=== PATIENT | male | born 1960 | race Caucasian/White ===

== ENCOUNTER 2019-10-02 07:12 | Emergency (ER) | payer MEDICARE, SELFPAY ==
[2019-10-02 07:20] VITALS: BP 162/113; PULSE 80; RESP 15; O2SAT 100; BMI 31.3
--- NOTE | 2019-10-02 07:38 | W.ED.BACK ---
HPI - Back Pain/Injury General: Chief Complaint: Back Pain/Injury Stated Complaint: BACK PAIN Time Seen by Provider: 10/02/19 07:18 History of Present Illness: HPI Narrative: Patient arrives ambulatory complaining about low back pain for the last 2 to 3days patient says dental what happened I confronted about his history of low back pain as a see through his record is had many visits for back pain and patient denied back pain history at first but after confrontation he said he has been seen couple times but not here but obviously in the [facility] [place] [place] system. Says he does want pain meds he used to be hooked on Vicodin. Says it hurts to get up out of a chair to roll over in bed to lift anything. MD elicited complaint: back pain Pertinent past history: prior back pain Onset (ago): year(s) Timing: constant and progressively worsening Severity: moderate Similar Symptoms Previously: Yes Quality: aching Location: lumbar spine Exacerbating factors: walking and lifting Relieving factors: immobilization Associated symptoms: Reports no associated symptoms; Deny abdominal pain, chills, fever(s), nausea or vomiting Review of Systems Const: Denies: fever(s), chills or body aches Eyes: Denies: change in vision or blurry vision ENMT: Denies: throat pain or nasal congestion Card: Denies: chest pain or dyspnea on exertion Resp: Denies: dyspnea, productive cough or non-productive cough GI: Denies: abdominal pain, nausea or vomiting : Denies: difficulty urinating Musc: Reports: back pain; Denies: extremity pain Skin/Breast: Denies: rash Neuro: Denies: headache(s) Psych: Denies: anxiety or depression Malcolm/Lymph: Denies: easy bruising PFSH ED PFSH: Social History Smoking and tobacco status: former smoker Physical Exam Const: COMMON NORMALS: no acute distress, average body habitus and patient oriented x3 HENMT: COMMON NORMALS: normocephalic HEAD & SCALP: normal to inspection and normocephalic FACE & SINUS: normal facial exam Eye: COMMON NORMALS: conjunctivae normal GENERAL EYE: appearance normal, both eyes and all related structures CONJUNCTIVA: Yes conjunctivae normal Neck/C-Spine: COMMON NORMALS: no JVD Chest: COMMONS NORMALS: normal inspection of the chest Resp: COMMON NORMALS: normal respiratory effort and clear to auscultation bilaterally AUSCULTATION: clear to auscultation bilaterally Cardio: COMMON NORMALS: no JVD, regular rate and regular rhythm RATE: regular rate RHYTHM: regular rhythm GI: COMMON NORMALS: Normal to inspection, nondistended, normoactive bowel sounds present Back/Pelvis: COMMON NORMALS: thoracic and lumbar spine normal to inspection; negative for straight leg raise negative bilaterally LUMBAR SPINE/LOWER BACK: Yes straight leg raise positive right (Bilateral straight leg lift test is positive I did watched patient ambulate into the clinic he ambulates slowly but did ambulate normally) and No straight leg raise positive left Extremity: COMMON NORMALS: normal to inspection and full ROM Neuro: COMMON NORMALS: patient oriented x3 Course Vital Signs: Vital signs: Vital Signs Pulse Rate 80 10/02/19 07:20 Respiratory Rate 15 10/02/19 07:20 Blood Pressure 162/113 10/02/19 07:20 Pulse Oximetry 100 10/02/19 07:20 Coding Level of Care Code ED Agricultural Specialist for Steve Cox
[2019-10-02] MEDS: methylPREDNISolone (DEPO) 80 MG/ML INJ 1 mL IM (07:50)
[2019-10-02] MEDS: ketorolac 60 mg/2 mL INJ IM (07:50)
[2019-10-02 07:56] VITALS: BP 124/100; PULSE 70; RESP 14; O2SAT 99
== END 2019-10-02 07:58 | disposition home or self-care (01) ==
PROVIDERS: Emergency Provider Nurse Practitioner Family; PCP Family Medicine
DX: M54.9 Dorsalgia, unspecified (principal); Z87.891 Personal history of nicotine dependence
CPT/HCPCS: 12345; 96372; 99281; 99283; J1040; J1885

== ENCOUNTER 2019-11-11 23:18 | Inpatient (IN) | payer MEDICARE, SELFPAY ==
[2019-11-11 23:27] VITALS: BP 138/82; PULSE 90; RESP 16; TEMP 36.7; O2SAT 96; BMI 31.3
[2019-11-12] VITALS (8 sets, daily range): BP systolic 115–175; BP diastolic 73–100; PULSE 64–80; RESP 16–18; TEMP 36.6–36.9; O2SAT 93–99
--- NOTE | 2019-11-12 00:05 | PC.NURSE ---
PATIENT STATES HE IS A CHRONIC ALCOHOLIC AND HAS RECENTLY BEEN DRINKING AGAIN BECAUSE OF FATHERS DAY. PATIENT STATES HE WANTS TO GO INTO THE STRESS UNIT FOR A FEW DAYS TO GET OFF THE ALCOHOL.
[2019-11-12 00:07] LABS: Basophils # 0.1 10^3/uL (0.0-0.1); Basophils % 1.1 %; Eosinophils # 0.1 10^3/uL (0.0-0.8); Eosinophils % 2.5 %; Hematocrit 42.5 % (42.0-52.0); Lymphocytes # 1.6 10^3/uL (0.8-4.8); Mean Corpuscular HGB Conc 32.9 g/dL (30.0-36.0); Mean Corpuscular Hemoglobin 34.5 pg (28.0-34.0); Mean Corpuscular Volume 104.7 fL (80-94); Mean Platelet Volume 12.6 fL (7.4-10.4); Monocytes # 0.5 10^3/uL (0.2-0.9); Monocytes % 8.2 %; Neutrophils # 3.3 10^3/uL (1.8-7.7); Neutrophils % 58.8 %; Nucleated Red Blood Cells % 0 %; Platelet Count 125 10^3/cmm (130-400); Red Blood Count 4.06 10^6/uL (4.1-5.3); Red Cell Distribution Width 13.2 % (12.1-15.1); White Blood Count 5.6 10^3/uL (4.0-10.0)
[2019-11-12 00:33] LABS: Alanine Aminotransferase 19 U/L (0-41); Albumin Level 3.9 g/dL (3.5-5.2); Alcohol Level 113 mg/dL (0-10); Alkaline Phosphatase 65 IU/L (40-130); Anion Gap 13.6 (5-19); Aspartate Amino Transferase 19 U/L (0-40); Blood Urea Nitrogen 15 mg/dL (6-20); Calcium 8.9 mg/dL (8.5-10.5); Carbon Dioxide 26 mmol/L (22-29); Chloride 107 mmol/L (98-107); Creatinine Clr Calc Pharmacy 71.2005; Globulin 1.7 g/dL (1.3-4.6); Glucose 98 mg/dL (65-115); Osmolality Calculated 292 mOsm/kg (285-295); Potassium 3.6 mmol/L (3.5-5.1); Sodium 143 mmol/L (136-145); Total Bilirubin 0.2 mg/dL (0.15-1.2); Total Protein 5.6 g/dL (6.6-8.7)
[2019-11-12 00:34] LABS: Acetaminophen < 5.0 ug/mL (10-30); Salicylate < 0.3 mg/dL (3-10)
--- NOTE | 2019-11-12 03:59 | W.ED.ALCOHOL ---
HPI - Alcohol General: Chief Complaint: Alcohol Stated Complaint: mhe Time Seen by Provider: 11/11/19 23:46 History of Present Illness: HPI narrative: 59-year-old presents with feelings of depression. He states that he has been sober for 2 years, and started drinking after Father's Day. He has been progressively depressed since that day a week ago. He says before he grabbed another bottle and drink himself to this morning, he called to come here. He wishes to come into the stress unit for treatment. Last drink: Days (ago) Chronic alcohol use: No Previous visits for alcohol intoxication: No Recent trauma: No Associated symptoms: Reports depression and suicidal ideation; Deny nausea, seizure-like activity, syncope or vomiting Review of Systems Const: Denies: fever(s) or chills Eyes: Denies: change in vision or blurry vision ENMT: Denies: change in hearing, epistaxis, post nasal drip or sinus pain Card: Denies: syncope Resp: Denies: dyspnea, non-productive cough or wheezing GI: Denies: nausea or vomiting : Denies: difficulty urinating or hematuria Musc: Reports: back pain; Denies: neck pain, joint redness or joint warmth Skin/Breast: Denies: rash, pruritus or erythema Neuro: Denies: seizure-like activity Psych: Reports: depression and suicidal ideation; Denies: visual hallucinations, auditory hallucinations or homicidal ideation [facility] ED PFSH: Social History Smoking and tobacco status: current every day smoker Physical Exam Const: GENERAL APPEARANCE: well developed ORIENTATION/CONSCIOUSNESS: Yes oriented to person, Yes oriented to place and Yes oriented to time HENMT: COMMON NORMALS: normocephalic, external ears normal and Normal external nose present HEAD & SCALP: normocephalic; no scalp tenderness FACE & SINUS: normal facial exam NOSE: Normal external nose present and No nasal discharge present EXTERNAL EAR: Yes external ears normal MOUTH: tongue normal Eye: COMMON NORMALS: Equal, round and reactive pupils present, EOMs intact bilaterally and conjunctivae normal EYELID: eyelids normal CONJUNCTIVA: Yes conjunctivae normal PUPIL: Yes Equal, round and reactive pupils present Neck/C-Spine: GENERAL: No tracheal deviation Chest: COMMONS NORMALS: normal inspection of the chest CHEST: No tenderness Resp: COMMON NORMALS: clear to auscultation bilaterally EFFORT & INSPECTION: No tachypneic, No respiratory distress, No retractions, No uses accessory muscles and No tracheal deviation AUSCULTATION: clear to auscultation bilaterally, no rhonchi, no wheezes and lung sounds not diminished Cardio: COMMON NORMALS: regular rate and regular rhythm RATE: regular rate RHYTHM: regular rhythm HEART SOUNDS: no murmurs PERIPHERAL PULSES: radial pulses present GI: INSPECTION: No abdominal distension AUSCULTATION: No Hyperactive bowel sounds present and No Hypoactive bowel sounds present PALPATION: No Guarding due to palpation present (GI) and No Rigid due to palpation PERCUSSION: no dullness to percussion and no tympanic to percussion Neuro: SENSORIUM/ORIENTATION: Yes oriented to person, Yes oriented to place and Yes oriented to time Psych: COMMON NORMALS: Normal thought process present and speech normal APPEARANCE: Yes grossly normal ATTITUDE: Yes calm and Yes engaged ACTIVITY/MOTOR BEHAVIOR: Yes appropriate eye contact SPEECH: Yes normal speech MOOD & AFFECT: Yes depressed mood THOUGHT PROCESS: Normal thought process present THOUGHT CONTENT: Yes Suicidality present ATTENTION/CONCENTRATION: Yes attention grossly intact MEMORY/COGNITION: Yes memory grossly intact INSIGHT: Fair insight present (Psych) JUDGEMENT: Fair judgement present (Psych) Skin: COMMON NORMALS: no rashes or lesions noted GENERAL SKIN EXAM: no rashes or lesions noted Course Consultations: Consultation #1: [facility] Vital Signs: Vital signs: Vital Signs Temperature 98 F 11/12/19 03:37 Pulse Rate 73 11/12/19 03:37 Respiratory Rate 17 11/12/19 03:37 Blood Pressure 136/96 11/12/19 03:37 Pulse Oximetry 95 11/12/19 03:37 MDM - Alcohol MDM Narrative: Medical decision making narrative: He appears medically stable. He desires to come in to the [facility] for psychiatric evaluation. I think this is appropriate. Spoke with psychiatry they agreed to admit Lab Data: Labs: Lab Results 11/11/19 11/11/19 Range/Units 23:58 23:58 WBC 5.6 (4.0-10.0) 10^3/ uL RBC 4.06 L (4.1-5.3) 10^6/u L Hgb 14.0 (11.7-16.6) g/dL Hct 42.5 (42.0-52.0) % MCV 104.7 H (80-94) fL MCH 34.5 H (28.0-34.0) pg MCHC 32.9 (30.0-36.0) g/dL RDW 13.2 (12.1-15.1) % Plt Count 125 L (130-400) 10^3/c mm MPV 12.6 H (7.4-10.4) fL Neut % (Auto) 58.8 % Lymph % (Auto) 29.0 % Lea % (Auto) 8.2 % Eos % (Auto) 2.5 % Baso % (Auto) 1.1 % Neut # (Auto) 3.3 (1.8-7.7) 10^3/u L Lymph # (Auto) 1.6 (0.8-4.8) 10^3/u L Lea # (Auto) 0.5 (0.2-0.9) 10^3/u L Eos # (Auto) 0.1 (0.0-0.8) 10^3/u L Baso # (Auto) 0.1 (0.0-0.1) 10^3/u L Nucleated RBC % (a uto) 0 % Nucleated RBCs # 0.0 /100WBC Sodium 143 (136-145) mmol/L Potassium 3.6 (3.5-5.1) mmol/L Chloride 107 (98-107) mmol/L Carbon Dioxide 26 (22-29) mmol/L Anion Gap 13.6 (5-19) BUN 15 (6-20) mg/dL Creatinine 1.2 (0.7-1.2) mg/dL GFR Calculation 62.0 L (90-130) mL/min Glucose 98 (65-115) mg/dL Calculated Osmolal ity 292 (285-295) mOsm/k g Calcium 8.9 (8.5-10.5) mg/dL Total Bilirubin 0.2 (0.15-1.2) mg/dL AST 19 (0-40) U/L ALT 19 (0-41) U/L Alkaline Phosphata se 65 (40-130) IU/L Total Protein 5.6 L (6.6-8.7) g/dL Albumin 3.9 (3.5-5.2) g/dL Globulin 1.7 (1.3-4.6) g/dL Salicylates < 0.3 L (3-10) mg/dL Acetaminophen < 5.0 L (10-30) ug/mL Ethyl Alcohol 113 H (0-10) mg/dL Discharge Plan Discharge Patient Disposition: Admitted As Inpatient Admit Provider: Jerel Ferrari Clinical Impression: Suicidal ideation Depression Qualifiers: Depression Type: major depressive disorder Major depression recurrence: single episode Active/Remission status: currently active Major depression episode severity: severe Psychotic features: without psychotic features Qualified Code(s): F32.2 - Major depressive disorder, single episode, severe without psychotic features Condition: Stable Discharge Date/Time: 11/12/19 03:17 Coding Level of Care Code ED Plant Health Care Technician for Steve Fwd Exam Comprehensive
--- NOTE | 2019-11-12 13:49 | P.HP_ITS ---
Providers/Chief Complaint Admitting Physician: Jerel Ferrari MD Primary Care Provider: Simin Johnson MD Chief Complaint: mhe HPI NPU History of Present Illness Rolando Campbell is a 59 year old male who presented to the emergency room reporting that he had relapsed on alcohol and was afraid that this will be the beginning of a very bad run. He endorsed depression and reporting he had been off of his medication for months at least maybe a year. He had been sober for about a year prior to this episode. He reports that there have been some stressful situations, he had been taken advantage of and that led to the relapse. He started having thoughts to harm himself and came to the emergency room and was admitted to the neuropsychiatric unit for definitive treatment of those issues. He reports that he has a long history of psychiatric treatment endorsing multiple inpatient stays at [facility]. He reports that he started smoking cigarettes drinking alcohol and smoking weed in his teens and reports that he has had a long run of addiction and other chemicals as well including opiates and methamphetamines but reports is been a long time since those things had occurred. He had even been up and down throughout his life and is drinking from the standpoint of sobriety. He reports that most recently in the past years he has had more binge drinking behavior then reverting to daily drinking. He reports that in February he started having housing issues and now finds himself completely homeless he reports the COVID-19 has made it harder for him to get on his feet and frustration he ended up drinking but also having depression. He denies having any actual suicide attempts and reports his goal for the hospitalization will be to get back on medication that helped him in the past though he does not remember names. An excerpt from his last [facility] inpatient eval is included below. Psychiatric history: As above. He has had at least 8 inpatient hospitalizations here at [facility]. He denies having a long history of medication trials. Substance abuse history: Endorses smoking about half to 3/4 pack of cigarettes a day that he has not been drinking and really does not smoke marijuana. He denies any illicit drug use for some time. Reports that he has been to rehab 1 time and has had DUIs with the last one was about a decade ago. Family history: He denies any mental health or addiction issues in his family and denies any s uicide attempts or completions that he is aware of. Developmental history: He is unaware of any issues with his mom's or delivery of him. He learned to walk and talk and met his developmental milestones on time. He denies having speech therapy, learning support, emotional support or special education classes. Psychosocial history: He reports his mother and father were together when he was born and that he has a younger brother. He denies any half siblings through either parent. He reports that his childhood and the school and there was no emotional physical or sexual abuse. He reports he graduated from high school and has a bachelor's of arts and theater with minor history. He is a heterosexual and his longest relationship was almost 25 years. He has been once and once he has a 32-year-old daughter and a 28-year-old son. He was in the [employer] from - . He endorses being [place] S[place]. He reports that his longest job he ever worked was 20 years with [employer]. He endorses being homeless. Legal history: Endorses being in care home maybe home many times with the longest time served being 3 months. Medical history: He denies any significant medical issues. Per [facility] OP eval: DATE OF VISIT: 02/04/2014 DATE OF DICTATION: 02/05/2014 START TIME: 10:25 END TIME: 11:05 CHIEF COMPLAINT: Resuming care. HISTORY OF PRESENT ILLNESS: The patient has been receiving psychiatric care at [facility]. He has been placed on both Prozac and trazodone, which he found helpful. He described himself as an addict . He has had a significant history of alcohol abuse. He described his alcohol use with sobriety for 136 days. He has used also methamphetamine in the past. The patient reported feeling sad and depressed and he was placed on the antidepressants, which he found them helpful. He would like to resume care. He is currently staying at the [facility]. CURRENT MEDICATIONS: Prozac 20 milligrams daily Trazodone 50 milligrams at bedtime FAMILY PSYCHIATRIC HISTORY: He denied a family history of psychiatric illness. SOCIAL HISTORY: He lives at the [facility]. He is . He has been in [place]. He is a . He graduated college. He has two children. He was living with his mother, before he became homeless. His major in school was theater. PAST MEDICAL/SURGICAL HISTORY: Cholecystectomy. He has also mentioned a previous diagnosis of some sort of a kidney cancer. A gastric ulcer was also reported. PAST PSYCHIATRIC HISTORY: Previously diagnosed with depression and posttraumatic stress disorder. SUBSTANCE ABUSE HISTORY: Methamphetamine and alcohol as described above. PHYSICAL EXAMINATION: VITAL SIGNS: BP: 113/59. PULSE: 98. WT: 172 pounds. GENERAL: He is not in any acute distress. He has a long mustache. He is alert and oriented to time, place, and person. EXTREMITIES: There was no extremity edema or deformity. MENTAL STATUS EXAM: The patient is fairly well-groomed, cooperative, good eye co ntact and spontaneous speech. He has denied any thoughts of suicide or homicide. He has denied any auditory or visual hallucinations. Affect is full. Mood is described as better with my medication. Fair attention and concentration. ASSESSMENT: AXIS I: Posttraumatic stress disorder. Major depressive disorder. Polysubstance dependence, in partial remission. Meds NPU Home Medications Medication Instructions Recorded Confirmed Last Taken Type No Known Home Medications 11/12/19 11/12/19 Unknown History Allergies Allergy/AdvReac Type Severity Reaction Status Date / Time No Known Allergies Allergy Verified 10/02/19 07:25 PFSH NPU PFSH: Social History Smoking and tobacco status: current every day smoker Mental Status Exam MSE Comments: This is a overweight versus obese white male with adequate dress grooming and eye contact. No abnormal movements except for psychomotor retardation he looks fairly rugged as if he has been living outside with his skin dark from the elements and his hands and feet rug and from the wear cooperative with exam in no acute distress speech was decreased rate and volume mood described as depressed affect congruent. Thought process organized. Thought content: Patient denied any suicidal or homicidal ideation, there were no delusions reported or noted, he denied any auditory or visual hallucinations. Attention and concentration were intact and memory appeared reliable but none were formally tested. He is alert and oriented x3. Insight and judgment are limited. Vitals/I&O/Wt Last Vital Signs Temp 98.0 F 11/12/19 06:00 Pulse 73 11/12/19 06:00 Resp 17 11/12/19 06:00 BP 136/96 11/12/19 06:00 Pulse Ox 95 11/12/19 06:00 Weight last 48 hrs Weight 90.718 kg Data NPU : 11/11/19 23:58 11/11/19 23:58 A&P Assessment and plan (1) Alcohol use disorder: Status: Acute (2) Suicidal ideation: Status: Acute (3) Depression: Status: Acute Qualifiers: Active/Remission status: currently active Depression Type: major depressive disorder Major depression episode severity: severe Major depression recurrence: single episode Psychotic features: without psychotic features Qualified Code(s): F32.2 - Major depressive disorder, single episode, severe without psychotic features Additional A&P Information This is a 59-year-old white male with a long history of Depression, alcohol use disorder and recently significant psychosocial stressors who presented to the neuropsychiatric unit for treatment of his depression and addiction and hopefully getting started back on some appropriate medications. 1. Continue current medication. Except: 2. Start Prozac 20 mg p.o. every morning 3. Continue to 15-minute checks for safety. 4. Encourage individual, group and milieu therapy. 5. Encourage discharge to sober living treatment at the highest level of care to which she is willing to commit. Involuntary Hold Information 96 Hour Hold: 96 Hour Involuntary Admission: No Attestations NPU Medical Necessity Statement*: Inpatient hospitalization is medically necessary and the clinically appropriate intervention at this time. We will initiate medication and monitor and make adjustments as indicated. He will be in the hospital for over 2 midnights. Likely length of stay 2-4 days. Coding Level of Care Code Acute Cafeteria Attendant for Steve Cox Diagnoses Alcohol use disorder Suicidal ideation R45.851 Depression F32.2 Active/Remission status: currently active Depression Type: major depressive disorder Major depression episode severity: severe Major depression recurrence: single episode Psychotic features: without psychotic features
[2019-11-13 06:00] VITALS: BP 178/102; PULSE 65; RESP 17; TEMP 36.9; O2SAT 97
[2019-11-13] MEDS: fluoxetine 20 mg Capsule PO (08:20)
--- NOTE | 2019-11-13 14:44 | P.DS_ITS ---
Diagnoses at Discharge Discharge Diagnosis (1) Alcohol use disorder: Status: Acute (2) Suicidal ideation: Status: Acute (3) Depression: Status: Acute Qualifiers: Active/Remission status: currently active Depression Type: major depressive disorder Major depression episode severity: severe Major depression recurrence: single episode Psychotic features: without psychotic features Qualified Code(s): F32.2 - Major depressive disorder, single episode, severe without psychotic features Reason for Visit Reason for Visit: mhe Brief History: Rolando Campbell is a 59 year old male who presented to the emergency room reporting that he had relapsed on alcohol and was afraid that this will be the beginning of a very bad run. He endorsed depression and reporting he had been off of his medication for months at least maybe a year. He had been sober for about a year prior to this episode. He reports that there have been some stressful situations, he had been taken advantage of and that led to the relapse. He started having thoughts to harm himself and came to the emergency room and was admitted to the neuropsychiatric unit for definitive treatment of those issues. He reports that he has a long history of psychiatric treatment endorsing multiple inpatient stays at [facility]. He reports that he started smoking cigarettes drinking alcohol and smoking weed in his teens and reports that he has had a long run of addiction and other chemicals as well including opiates and methamphetamines but reports is been a long time since those things had occurred. He had even been up and down throughout his life and is drinking from the standpoint of sobriety. He reports that most recently in the past years he has had more binge drinking behavior then reverting to daily drinking. He reports that in February he started having housing issues and now finds himself completely homeless he reports the COVID-19 has made it harder for him to get on his feet and frustration he ended up drinking but also having depression. He denies having any actual suicide attempts and reports his goal for the hospitalization will be to get back on medication that helped him in the past though he does not remember names. An excerpt from his last [facility] inpatient eval is included below. Psychiatric history: As above. He has had at least 8 inpatient [address] here at [facility]. He denies having a long history of medication trials. Substance abuse history: Endorses smoking about half to 3/4 pack of cigarettes a day that he has not been drinking and really does not smoke marijuana. He denies any illicit drug use for some time. Reports that he has been to rehab 1 time and has had DUIs with the last one was about a decade ago. Family history: He denies any mental health or addiction issues in his family and denies any suicide attempts or completions that he is aware of. Developmental history: He is unaware of any issues with his mom's or delivery of him. He learned to walk and talk and met his developmental milestones on time. He denies having speech therapy, learning support, emotional support or special education classes. Psychosocial history: He reports his mother and father were together when he was born and that he has a younger brother. He denies any half siblings through either parent. He reports that his childhood and the school and there was no emotional physical or sexual abuse. He reports he graduated from high school and has a bachelor's of arts and theater with minor history. He is a heterosexual and his longest relationship was almost 25 years. He has been once and once he has a 32-year-old daughter and a 28-year-old son. He was in the [employer] from - [employer]. He endorses being [place] Yaz[employer]ism. He reports that his longest job he ever worked was 20 years with [employer]. He endorses being homeless. Legal history: Endorses being in fdc maybe home many times with the longest time served being 3 months. Medical history: He denies any significant medical issues. Per [facility] OP eval: DATE OF VISIT: 02/04/2014 DATE OF DICTATION: 02/05/2014 START TIME: 10:25 END TIME: 11:05 CHIEF COMPLAINT: Resuming care. HISTORY OF PRESENT ILLNESS: The patient has been receiving psychiatric care at [facility]. He has been placed on both Prozac and trazodone, which he found helpful. He described himself as an addict . He has had a significant history of alcohol abuse. He described his alcohol use with sobriety for 136 days. He has used also methamphetamine in the past. The patient reported feeling sad and depressed and he was placed on the antidepressants, which he found them helpful. He would like to resume care. He is currently staying at the [facility]. CURRENT MEDICATIONS: Prozac 20 milligrams daily Trazodone 50 milligrams at bedtime FAMILY PSYCHIATRIC HISTORY: He denied a family history of psychiatric illness. SOCIAL HISTORY: He lives at the [facility]. He is . He has been in [place]. He is a . He graduated college. He has two children. He was living with his mother, before he became homeless. His major in school was theater. PAST MEDICAL/SURGICAL HISTORY: Cholecystectomy. He has also mentioned a previous diagnosis of some sort of a kidney cancer. A gastric ulcer was also reported. PAST PSYCHIATRIC HISTORY: Previously diagnosed with depression and posttraumatic stress disorder. SUBSTANCE ABUSE HISTORY: Methamphetamine and alcohol as described above. PHYSICAL EXAMINATION: VITAL SIGNS: BP: 113/59. PULSE: 98. WT: 172 pounds. GENERAL: He is not in any acute distress. He has a long mustache. He is alert and oriented to time, place, and person. EXTREMITIES: There was no extremity edema or deformity. MENTAL STATUS EXAM: The patient is fairly well-groomed, cooperative, good eye contact and spontaneous speech. He has denied any thoughts of suicide or homicide. He has denied any auditory or visual hallucinations. Affect is full. Mood is described as better with my medication. Fair attention and concentration. ASSESSMENT: AXIS I: Posttraumatic stress disorder. Major depressive disorder. Polysubstance dependence, in partial remission. Hospital Course Hospital Course Now presented to the emergency room having recently relapsed on alcohol and having suicidal thoughts with depression. He was admitted to the neuropsychiatric unit for definitive treatment of those issues. While on the unit he slowly acclimated to the individual, group and milieu therapies provided. He was started on Prozac and propranolol and had a positive response. During hospitalization, and routine laboratory studies were within normal limits except for a few outliers. Additionally had a general medical evaluation which is also within normal limits and revealed no new processes. Discharge Summary At the time of discharge, patient was absent lethality and denied any psychosis. Endorse a plan to avoid all drugs of abuse and follow with outpatient recommendations. He was evaluated and deemed to be absent credible lethality achieved the maximum benefit from inpatient hospitalization so he was discharged. Involuntary Hold Information 96 Hour Hold: 96 Hour Involuntary Admission: No Mental Status Exam MSE Comments: This is a overweight versus obese white male with adequate dress grooming and eye contact. No abnormal movements except for resolving psychomotor retardation he looks fairly rugged as if he has been living outside with his skin dark from the elements and his hands and feet rug and from the wear cooperative with exam in no acute distress. speech was more normal rate and volume. mood described as better, affect congruent. Thought process organized. Thought content: Patient denied any suicidal or homicidal ideation, there were no delusions reported or noted, he denied any auditory or visual hallucinations. Attention and concentration were intact and memory appeared reliable but none were formally tested. He is alert and oriented x3. Insight and judgment are improving Discharge Data Vitals: Last Vital Signs Temp 98.4 F 11/13/19 06:00 Pulse 65 11/13/19 06:00 Resp 17 11/13/19 06:00 BP 178/102 11/13/19 06:00 Pulse Ox 97 11/13/19 06:00 Discharge Plan Discharge Patient Disposition: Home, Self-Care Condition: Stable Prescriptions: New propranolol 20 mg Tablet 20 mg PO TID 30 Days Qty: 90 RF: 1 fluoxetine 20 mg Capsule 20 mg PO DAILY 30 Days Qty: 30 RF: 1 Discharge Orders: Discharge Order (Routine); Ordered 11/13/19 Ordered By: Jerel Ferrari Referrals: [facility] [Outside] - 1-3 days (you will need to go during the walk-in hours and request services Tuesday through Tuesday 7:30 a.m.-2:30 pm. 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
[2019-11-13 15:14] VITALS: BP 178/102; PULSE 65; RESP 17; TEMP 36.9; O2SAT 97
[2019-11-13 15:19] VITALS: BP 178/102; PULSE 65; RESP 17; TEMP 36.9; O2SAT 97
== END 2019-11-13 17:00 | disposition home or self-care (01) | DRG 897 ==
LOC: ER 23:53 → NP 11-12 02:25
PROVIDERS: Physician Assistant; Admitting Provider Psychiatry & Neurology Psychiatry; Emergency Provider Emergency Medicine; PCP Family Medicine; Visit Provider Psychiatry & Neurology Psychiatry
DX: F10.129 Alcohol abuse with intoxication, unspecified (principal); R45.851 Suicidal ideations; F32.2 Major depressive disorder, single episode, severe without psychotic features; F17.210 Nicotine dependence, cigarettes, uncomplicated; Z59.0 Homelessness; F43.10 Post-traumatic stress disorder, unspecified; Y90.5 Blood alcohol level of 100-119 mg/100 ml
CPT/HCPCS: 12345; 80053; 80307; 85025; 99281

== ENCOUNTER 2019-12-01 14:33 | Emergency (ER) | payer MEDICARE, SELFPAY ==
[2019-12-01] VITALS (8 sets, daily range): BP systolic 96–236; BP diastolic 63–112; PULSE 84–98; RESP 16–22; TEMP 36.9; O2SAT 96–99; BMI 31.3
--- NOTE | 2019-12-01 14:57 | W.ED.ABDPA2 ---
Documented by User: CHIKIS Lei 12/01/19 16:38 HPI - Abdominal Pain General: Chief Complaint: Abdominal Pain Stated Complaint: ABD PAIN Time Seen by Provider: 12/01/19 14:56 History of Present Illness: HPI narrative: Patient is a 59-year-old male who comes to the ED with epigastric pain, nausea and vomiting. Patient says symptoms started this morning when he woke up. The pain is continued to progress and become more severe throughout the day. Pain is located in the epigastric region and he rates it currently an 8 out of 10. He describes the pain as constant and sharp. He says he has been dry heaving all throughout the day today. He was able to eat a bologna sandwich today and he kept it down. Denies any dysuria, hematuria, diarrhea, constipation or blood in the stool. Patient states that he does drink alcohol daily but denies any recent cessation or decrease in alcohol intake. Associated Symptoms: Reports nausea and vomiting; Denies chills, constipation, diarrhea, dysuria, fever(s), hematochezia and hematuria Review of Systems Const: Reports: diaphoresis; Denies: fever(s), chills or fatigue Eyes: Denies: change in vision or eye discomfort ENMT: Denies: throat pain, odynophagia, nasal discharge or nasal congestion Card: Denies: chest pain, palpitations, edema, swelling of feet/ankles, dyspnea on exertion or orthopnea Resp: Denies: dyspnea, productive cough or non-productive cough GI: Reports: abdominal pain (epigastric pain), nausea and vomiting; Denies: diarrhea, constipation or hematochezia : Denies: flank pain, difficulty urinating, dysuria or hematuria Musc: Denies: neck pain, back pain or extremity swelling Skin/Breast: Denies: rash or new lesions Neuro: Denies: headache(s), numbness in extremities or weakness in extremities PFSH ED PFSH: Social History Smoking and tobacco status: current every day smoker Physical Exam Const: COMMON NORMALS: patient oriented x3 and alert GENERAL APPEARANCE: cooperative, in distress (pt is moaning in pain.) and diaphoretic HENMT: COMMON NORMALS: normocephalic HEAD & SCALP: normocephalic MOUTH: Normal oral and palatal mucosa present THROAT: posterior oropharynx normal and uvula midline Neck/C-Spine: COMMON NORMALS: supple GENERAL: Yes normal visual inspection Resp: COMMON NORMALS: normal respiratory effort, No retractions, No use of accessory muscles and clear to auscultation bilaterally EFFORT & INSPECTION: Yes able to speak in complete sentences AUSCULTATION: clear to auscultation bilaterally Cardio: COMMON NORMALS: regular rate, regular rhythm, S1 normal heart sound present, S2 normal heart sound present, No gallops present (Cardio), No clicks present (Cardio), No murmurs present (Cardio) and Peripheral pulses 2+ throughout RATE: regular rate RHYTHM: regular rhythm HEART SOUNDS: S1 normal heart sound present and S2 normal heart sound present PERIPHERAL PULSES: Peripheral pulses 2+ throughout GI: COMMON NORMALS: Normal to inspection, nondistended, normoactive bowel sounds present, Soft to palpation and no masses PALPATION: Yes Soft to palpation and Yes Tenderness to palpation present (GI) Details: other (epigastric tenderness) : COMMON NORMALS: Yes no CVA tenderness BLADDER/KIDNEY EXAM: Yes no CVA tenderness Back/Pelvis: COMMON NORMALS: no CVA tenderness Extremity: COMMON NORMALS: normal to inspection and no pedal edema Neuro: COMMON NORMALS: patient oriented x3 and moves all extremities SENSORIUM/ORIENTATION: Yes alert Skin: COMMON NORMALS: no rashes or lesions noted NARRATIVE SKIN EXAM: Patient's skin is clammy to the touch and he is diaphoretic. GENERAL SKIN EXAM: no rashes or lesions noted Course Vital Signs: Vital signs: Vital Signs Temperature 98.4 F 12/01/19 14:39 Pulse Rate 84 12/01/19 20:24 Respiratory Rate 16 12/01/19 20:24 Blood Pressure 96/63 12/01/19 20:24 Pulse Oximetry 97 12/01/19 20:24 MDM - Abdominal Pain MDM Narrative: Medical decision making narrative: Patient care signed out to Dr. Judge. Patient's history, exam findings and labs were discussed. Waiting on baseline troponin value. Lab Data: Attestation: I reviewed the patient's lab results. Labs: Lab Results 12/01/19 12/01/19 12/01/19 Range/Units 14:53 14:53 14:53 WBC 7.4 (4.0-10.0) 10^3/ uL RBC 5.13 (4.1-5.3) 10^6/u L Hgb 17.4 H (11.7-16.6) g/dL Hct 50.5 (42.0-52.0) % MCV 98.4 H (80-94) fL MCH 33.9 (28.0-34.0) pg MCHC 34.5 (30.0-36.0) g/dL RDW 12.8 (12.1-15.1) % Plt Count 146 (130-400) 10^3/c mm MPV 12.7 H (7.4-10.4) fL Neut % (Auto) 65.4 % Lymph % (Auto) 24.1 % [place] % (Auto) 8.7 % Eos % (Auto) 0.5 % Baso % (Auto) 0.8 % Neut # (Auto) 4.86 (1.8-7.7) 10^3/u L Lymph # (Auto) 1.8 (0.8-4.8) 10^3/u L [place] # (Auto) 0.7 (0.2-0.9) 10^3/u L Eos # (Auto) 0.0 (0.0-0.8) 10^3/u L Baso # (Auto) 0.1 (0.0-0.1) 10^3/u L Nucleated RBC % (a uto) 0 % Nucleated RBCs # 0.0 /100WBC Sodium 135 L (136-145) mmol/L Potassium 3.4 L (3.5-5.1) mmol/L Chloride 98 (98-107) mmol/L Carbon Dioxide 20 L (22-29) mmol/L Anion Gap 20.4 H (5-19) BUN 26 H (6-20) mg/dL Creatinine 1.4 H (0.7-1.2) mg/dL GFR Calculation 51.9 L (90-130) mL/min Glucose 98 (65-115) mg/dL Calculated Osmolal ity 277 L (285-295) mOsm/k g Calcium 9.8 (8.5-10.5) mg/dL Total Bilirubin 0.8 (0.15-1.2) mg/dL AST 21 (0-40) U/L ALT 19 (0-41) U/L Alkaline Phosphata se 65 (40-130) IU/L Troponin T Baselin e (0-15) ng/L Troponin T 120 Min [place] (0-15) ng/L Delta Troponin T (0-10) ABS# Total Protein 6.8 (6.6-8.7) g/dL Albumin 4.6 (3.5-5.2) g/dL Globulin 2.2 (1.3-4.6) g/dL Lipase 22 (13-60) U/L Urine Color (Yellow) Urine Appearance (CLEAR) Urine pH (5-7) Ur Specific Gravit y (1.005-1.030) Urine Protein (Negative) Urine Glucose (UA) (Normal) Urine Ketones (Negative) Urine Blood (Negative) Urine Nitrate (Negative) Urine Bilirubin (NEGATIVE) Urine Urobilinogen (Negative) mg/dL Ur Leukocyte Cecy ase (Negative) Urine RBC (0-2) /hpf Urine WBC (0-5) /hpf Ur Squamous Epith Cells (0-5) Amorphous Sediment Urine Bacteria (NONE) Hyaline Casts Urine Mucus H. pylori IgG Anti body Negative (Negative) 12/01/19 12/01/19 12/01/19 Range/Units 14:53 17:30 18:45 WBC (4.0-10.0) 10^3/ uL RBC (4.1-5.3) 10^6/u L Hgb (11.7-16.6) g/dL Hct (42.0-52.0) % MCV (80-94) fL MCH (28.0-34.0) pg MCHC (30.0-36.0) g/dL RDW (12.1-15.1) % Plt Count (130-400) 10^3/c mm MPV (7.4-10.4) fL Neut % (Auto) % Lymph % (Auto) % [place] % (Auto) % Eos % (Auto) % Baso % (Auto) % Neut # (Auto) (1.8-7.7) 10^3/u L Lymph # (Auto) (0.8-4.8) 10^3/u L [place] # (Auto) (0.2-0.9) 10^3/u L Eos # (Auto) (0.0-0.8) 10^3/u L Baso # (Auto) (0.0-0.1) 10^3/u L Nucleated RBC % (a uto) % Nucleated RBCs # /100WBC Sodium (136-145) mmol/L Potassium (3.5-5.1) mmol/L Chloride (98-107) mmol/L Carbon Dioxide (22-29) mmol/L Anion Gap (5-19) BUN (6-20) mg/dL Creatinine (0.7-1.2) mg/dL GFR Calculation (90-130) mL/min Glucose (65-115) mg/dL Calculated Osmolal ity (285-295) mOsm/k g Calcium (8.5-10.5) mg/dL Total Bilirubin (0.15-1.2) mg/dL AST (0-40) U/L ALT (0-41) U/L Alkaline Phosphata se (40-130) IU/L Troponin T Baselin e 24 H (0-15) ng/L Troponin T 120 Min [place] 19.13 H (0-15) ng/L Delta Troponin T -4.87 L (0-10) ABS# Total Protein (6.6-8.7) g/dL Albumin (3.5-5.2) g/dL Globulin (1.3-4.6) g/dL Lipase (13-60) U/L Urine Color Yellow (Yellow) Urine Appearance Clear (CLEAR) Urine pH 5 (5-7) Ur Specific Gravit y 1.020 (1.005-1.030) Urine Protein Trace (Negative) Urine Glucose (UA) Norm (Normal) Urine Ketones 1+ H (Negative) Urine Blood Neg (Negative) Urine Nitrate Negative (Negative) Urine Bilirubin Neg (NEGATIVE) Urine Urobilinogen Norm (Negative) mg/dL Ur Leukocyte Cecy ase Negative (Negative) Urine RBC None (0-2) /hpf Urine WBC 0-4 H (0-5) /hpf Ur Squamous Epith Cells Rare (0-5) Amorphous Sediment Not Reportable Urine Bacteria Trace (NONE) Hyaline Casts 10-15 H Urine Mucus 1+ H. pylori IgG Anti body (Negative) EKG Data ^: EKG 1: Attestation: I personally reviewed and interpreted this EKG as follows: EKG interpretation date: 12/01/19 Interpretation: sinus rhythm, 89bpm, Occasional SVC. no st segment elevation or depression seen. Discharge Plan Discharge Patient Disposition: Home, Self-Care Clinical Impression: Abdominal pain Qualifiers: Abdominal location: generalized Qualified Code(s): R10.84 - Generalized abdominal pain Pneumonia Qualifiers: Pneumonia type: due to unspecified organism Laterality: left Lung location: lower lobe of lung Qualified Code(s): J18.9 - Pneumonia, unspecified organism Condition: Stable Prescriptions: [place] 5-325 mg tablet 1 tab PO Q6H PRN (Reason: pain) Qty: 14 RF: 0 ondansetron 4 mg tablet,disintegrating 4 mg PO Q6H PRN (Reason: nausea and vomiting) Qty: 14 RF: 0 doxycycline hyclate 100 mg capsule 100 mg PO BID 7 Days Qty: 14 RF: 0 No Action propranolol 20 mg Tablet 20 mg PO TID 30 Days Qty: 90 RF: 1 fluoxetine 20 mg Capsule 20 mg PO DAILY 30 Days Qty: 30 RF: 1 Discharge Orders: Discharge Order (Routine); Ordered 12/01/19 Ordered By: Janette Judge Referrals: Simin Johnson MD [Primary Care Provider] - 1-3 days Discharge Diet: Advance as tolerated Discharge Activity: Resume usual activity Patient Instructions: Abdominal Pain (ED), Pneumonia (ED) Discharge Date/Time: 12/01/19 20:25 Coding Level of Care Code ED Program Administrator for Chg Fwd Exam Comprehensive Documented by User: Janette Judge MD 12/01/19 20:39 HPI - Abdominal Pain General: Chief Complaint: Abdominal Pain Stated Complaint: ABD PAIN Time Seen by Provider: 12/01/19 14:56 PFSH ED PFSH: Social History Smoking and tobacco status: current every day smoker Course Vital Signs: Vital signs: Vital Signs Temperature 98.4 F 12/01/19 14:39 Pulse Rate 84 12/01/19 20:24 Respiratory Rate 16 12/01/19 20:24 Blood Pressure 96/63 12/01/19 20:24 Pulse Oximetry 97 12/01/19 20:24 MDM - Abdominal Pain MDM Narrative: Medical decision making narrative: Rolando presents here with abdominal pain is upper abdomen. Patient CT showed a possible pneumonia could be causing his pain as well. Exam at discharge is benign. Patient is having no chest pain and repeat troponin was negative. Patient has no signs of pulmonary embolism. He is stable for discharge will place him on pain medicine and antibiotics. He is to follow-up primary care doctor in 3 to 4 days return if worsening. Lab Data: Labs: Lab Results 12/01/19 12/01/19 12/01/19 Range/Units 14:53 14:53 14:53 WBC 7.4 (4.0-10.0) 10^3/ uL RBC 5.13 (4.1-5.3) 10^6/u L Hgb 17.4 H (11.7-16.6) g/dL Hct 50.5 (42.0-52.0) % MCV 98.4 H (80-94) fL MCH 33.9 (28.0-34.0) pg MCHC 34.5 (30.0-36.0) g/dL RDW 12.8 (12.1-15.1) % Plt Count 146 (130-400) 10^3/c mm MPV 12.7 H (7.4-10.4) fL Neut % (Auto) 65.4 % Lymph % (Auto) 24.1 % [place] % (Auto) 8.7 % Eos % (Auto) 0.5 % Baso % (Auto) 0.8 % Neut # (Auto) 4.86 (1.8-7.7) 10^3/u L Lymph # (Auto) 1.8 (0.8-4.8) 10^3/u L [place] # (Auto) 0.7 (0.2-0.9) 10^3/u L Eos # (Auto) 0.0 (0.0-0.8) 10^3/u L Baso # (Auto) 0.1 (0.0-0.1) 10^3/u L Nucleated RBC % (a uto) 0 % Nucleated RBCs # 0.0 /100WBC Sodium 135 L (136-145) mmol/L Potassium 3.4 L (3.5-5.1) mmol/L Chloride 98 (98-107) mmol/L Carbon Dioxide 20 L (22-29) mmol/L Anion Gap 20.4 H (5-19) BUN 26 H (6-20) mg/dL Creatinine 1.4 H (0.7-1.2) mg/dL GFR Calculation 51.9 L (90-130) mL/min Glucose 98 (65-115) mg/dL Calculated Osmolal ity 277 L (285-295) mOsm/k g Calcium 9.8 (8.5-10.5) mg/dL Total Bilirubin 0.8 (0.15-1.2) mg/dL AST 21 (0-40) U/L ALT 19 (0-41) U/L Alkaline Phosphata se 65 (40-130) IU/L Troponin T Baselin e (0-15) ng/L Troponin T 120 Min [place] (0-15) ng/L Delta Troponin T (0-10) ABS# Total Protein 6.8 (6.6-8.7) g/dL Albumin 4.6 (3.5-5.2) g/dL Globulin 2.2 (1.3-4.6) g/dL Lipase 22 (13-60) U/L Urine Color (Yellow) Urine Appearance (CLEAR) Urine pH (5-7) Ur Specific Gravit y (1.005-1.030) Urine Protein (Negative) Urine Glucose (UA) (Normal) Urine Ketones (Negative) Urine Blood (Negative) Urine Nitrate (Negative) Urine Bilirubin (NEGATIVE) Urine Urobilinogen (Negative) mg/dL Ur Leukocyte Cecy ase (Negative) Urine RBC (0-2) /hpf Urine WBC (0-5) /hpf Ur Squamous Epith Cells (0-5) Amorphous Sediment Urine Bacteria (NONE) Hyaline Casts Urine Mucus H. pylori IgG Anti body Negative (Negative) 12/01/19 12/01/19 12/01/19 Range/Units 14:53 17:30 18:45 WBC (4.0-10.0) 10^3/ uL RBC (4.1-5.3) 10^6/u L Hgb (11.7-16.6) g/dL Hct (42.0-52.0) % MCV (80-94) fL MCH (28.0-34.0) pg MCHC (30.0-36.0) g/dL RDW (12.1-15.1) % Plt Count (130-400) 10^3/c mm MPV (7.4-10.4) fL Neut % (Auto) % Lymph % (Auto) % [place] % (Auto) % Eos % (Auto) % Baso % (Auto) % Neut # (Auto) (1.8-7.7) 10^3/u L Lymph # (Auto) (0.8-4.8) 10^3/u L [place] # (Auto) (0.2-0.9) 10^3/u L Eos # (Auto) (0.0-0.8) 10^3/u L Baso # (Auto) (0.0-0.1) 10^3/u L Nucleated RBC % (a uto) % Nucleated RBCs # /100WBC Sodium (136-145) mmol/L Potassium (3.5-5.1) mmol/L Chloride (98-107) mmol/L Carbon Dioxide (22-29) mmol/L Anion Gap (5-19) BUN (6-20) mg/dL Creatinine (0.7-1.2) mg/dL GFR Calculation (90-130) mL/min Glucose (65-115) mg/dL Calculated Osmolal ity (285-295) mOsm/k g Calcium (8.5-10.5) mg/dL Total Bilirubin (0.15-1.2) mg/dL AST (0-40) U/L ALT (0-41) U/L Alkaline Phosphata se (40-130) IU/L Troponin T Baselin e 24 H (0-15) ng/L Troponin T 120 Min [place] 19.13 H (0-15) ng/L Delta Troponin T -4.87 L (0-10) ABS# Total Protein (6.6-8.7) g/dL Albumin (3.5-5.2) g/dL Globulin (1.3-4.6) g/dL Lipase (13-60) U/L Urine Color Yellow (Yellow) Urine Appearance Clear (CLEAR) Urine pH 5 (5-7) Ur Specific Gravit y 1.020 (1.005-1.030) Urine Protein Trace (Negative) Urine Glucose (UA) Norm (Normal) Urine Ketones 1+ H (Negative) Urine Blood Neg (Negative) Urine Nitrate Negative (Negative) Urine Bilirubin Neg (NEGATIVE) Urine Urobilinogen Norm (Negative) mg/dL Ur Leukocyte Cecy ase Negative (Negative) Urine RBC None (0-2) /hpf Urine WBC 0-4 H (0-5) /hpf Ur Squamous Epith Cells Rare (0-5) Amorphous Sediment Not Reportable Urine Bacteria Trace (NONE) Hyaline Casts 10-15 H Urine Mucus 1+ H. pylori IgG Anti body (Negative) Imaging Data ^: CT Abd/Pel: Radiologist's impression: [place] [address] CT Scan Report Signed Patient: Rolando Campbell Unit #: [id number] : 1960 Age/Sex: 59 / M ADM Date: 12/01/19 Loc: ER Room/Bed: Attending Dr: Ordering Provider/Ordering MD: Janette Judge MD Date of Service: 12/01/19 Procedure(s): CT angio chest w abd pel w con Accession Number(s): [id number] Report Number: [id number] PROCEDURE INFORMATION: Exam: CT Angiography Chest With Contrast Exam date and time: 12/01/2019 6:11 PM Age: 59 years old Clinical indication: Abdominal pain; Generalized; Chest pain; Type not specified; Prior surgery; Surgery date: 6+ months; 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 3D rendering: MIP and/or 3D reconstructed images were created by the technologist. Radiation optimization: All CT scans at this facility use at least one of these dose optimization techniques: automated exposure control; mA and/or kV adjustment per patient size (includes targeted exams where dose is matched to clinical indication); or iterative reconstruction. Contrast material: VISIPAQUE 320; Contrast volume: 95 ml; Contrast route: INTRAVENOUS (IV); COMPARISON: CT chest w con* [id number] 11/28/2017 11:16 AM RADIATION DOSE METRICS: Total DLP (mGy-cm): 1585.24 FINDINGS: Pulmonary arteries: There is no pulmonary embolus. Aorta: Unremarkable. No aortic aneurysm. No aortic dissection. Lungs: There is subpleural atelectasis of the dependent portions of the lungs. There is airspace opacity in the left lower lobe and lingula compatible with probable pneumonic infiltrates. There are moderate emphysematous changes. Pleural space: Unremarkable. No pneumothorax. No pleural effusion. Heart: Unremarkable. No cardiomegaly. No pericardial effusion. Mediastinal space: A small hiatal hernia is present. Lymph nodes: There is a unchanged 6 mm ground-glass nodule right lung image 45 that is a probable perifissural lymph node. Bones/joints: Unremarkable. No acute fracture. Soft tissues: Unremarkable. Other findings: No new or enlarging pulmonary nodule. IMPRESSION: 1. There is airspace opacity in the left lower lobe and lingula compatible with probable pneumonic infiltrates. 2. There is no pulmonary embolus. 3. Unchanged probable small perifissural lymph node right lung. 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 Radiation optimization: All CT scans at this facility use at least one of these dose optimization techniques: automated exposure control; mA and/or kV adjustment per patient size (includes targeted exams where dose is matched to clinical indication); or iterative reconstruction. Contrast material: VISIPAQUE 320; Contrast volume: 95 ml; Contrast route: INTRAVENOUS (IV); COMPARISON: CT chest w con* [id number] 11/28/2017 11:16 AM RADIATION DOSE METRICS: Total DLP (mGy-cm): 1585.24 FINDINGS: Liver: Unremarkable.No mass. Gallbladder and bile ducts: There has been a cholecystectomy. There is no common bile duct dilation. Pancreas: Normal. No ductal dilation. Spleen: Normal. No splenomegaly. Adrenals: Normal. No mass. Kidneys and ureters: There are postoperative changes of probable partial left nephrectomy with scarring mid to lower pole left kidney. There is no evidence of hydronephrosis. There is no evidence of renal calcifications. Stomach and bowel: No focal gastric wall thickening or ulcer is identified. The duodenum is unremarkable. Mild diverticulosis is present in the distal colon. There is no evidence of colitis/diverticulitis. There is no evidence of intestinal perforation or obstruction. Appendix: A normal appendix is identified. Intraperitoneal space: Unremarkable. No free air. No significant fluid collection. Vasculature: The aorta demonstrates moderate atherosclerotic calcification. Lymph nodes: Unremarkable.No enlarged lymph nodes. Bladder: There is nonspecific bladder wall thickening. This may be related to incomplete distention. Reproductive: The prostate demonstrates mild nonspecific enlargement. The seminal vesicles are normal. Bones/joints: There is severe facet degenerative changes in the lower lumbar spine. There is degenerative grade 2 spondylolisthesis of L5 on S1. No acute bony abnormality. Soft tissues: There is a nonobstructing left inguinal hernia. CT/CT angio chest w abd pel w con IMPRESSION: No acute abnormality in the abdomen or pelvis. Discharge Plan Discharge Patient Disposition: Home, Self-Care Clinical Impression: Abdominal pain Qualifiers: Abdominal location: generalized Qualified Code(s): R10.84 - Generalized abdominal pain Pneumonia Qualifiers: Pneumonia type: due to unspecified organism Laterality: left Lung location: lower lobe of lung Qualified Code(s): J18.9 - Pneumonia, unspecified organism Condition: Stable Prescriptions: [place] 5-325 mg tablet 1 tab PO Q6H PRN (Reason: pain) Qty: 14 RF: 0 ondansetron 4 mg tablet,disintegrating 4 mg PO Q6H PRN (Reason: nausea and vomiting) Qty: 14 RF: 0 doxycycline hyclate 100 mg capsule 100 mg PO BID 7 Days Qty: 14 RF: 0 No Action propranolol 20 mg Tablet 20 mg PO TID 30 Days Qty: 90 RF: 1 fluoxetine 20 mg Capsule 20 mg PO DAILY 30 Days Qty: 30 RF: 1 Discharge Orders: Discharge Order (Routine); Ordered 12/01/19 Ordered By: Janette Judge Referrals: Simin Johnson MD [Primary Care Provider] - 1-3 days Discharge Diet: Advance as tolerated Discharge Activity: Resume usual activity Patient Instructions: Abdominal Pain (ED), Pneumonia (ED) Discharge Date/Time: 12/01/19 20:25 Coding Level of Care Code ED Program Administrator for Chg Fwd Exam Comprehensive
--- NOTE | 2019-12-01 15:01 | XRR_ITS ---
PROCEDURE INFORMATION: Exam: XR Chest, 1 View Exam date and time: 12/01/2019 3:03 PM Age: 59 years old Clinical indication: Other: Epigastric pain TECHNIQUE: Imaging protocol: XR of the chest Views: 1 view. COMPARISON: CR Chest 1 [place] [id number] 12/21/2017 6:04 PM FINDINGS: Lungs: Unremarkable. No consolidation. Pleural space: Unremarkable. No pleural effusion. No pneumothorax. Heart/Mediastinum: Unremarkable. No cardiomegaly. Bones/joints: Unremarkable. XR/XR chest 1V portable [id number] IMPRESSION: No acute findings.
[2019-12-01 15:05] LABS: Basophils # 0.1 10^3/uL (0.0-0.1); Basophils % 0.8 %; Eosinophils % 0.5 %; Hematocrit 50.5 % (42.0-52.0); Hemoglobin 17.4 g/dL (11.7-16.6); Lymphocytes # 1.8 10^3/uL (0.8-4.8); Lymphocytes % 24.1 %; Mean Corpuscular HGB Conc 34.5 g/dL (30.0-36.0); Mean Corpuscular Hemoglobin 33.9 pg (28.0-34.0); Mean Corpuscular Volume 98.4 fL (80-94); Mean Platelet Volume 12.7 fL (7.4-10.4); Monocytes # 0.7 10^3/uL (0.2-0.9); Monocytes % 8.7 %; Neutrophils # 4.86 10^3/uL (1.8-7.7); Neutrophils % 65.4 %; Nucleated Red Blood Cells % 0 %; Platelet Count 146 10^3/cmm (130-400); Red Blood Count 5.13 10^6/uL (4.1-5.3); Red Cell Distribution Width 12.8 % (12.1-15.1); White Blood Count 7.4 10^3/uL (4.0-10.0)
[2019-12-01] MEDS: sodium chloride 0.9% 1,000 ML 999 ML IV (15:30)
[2019-12-01] MEDS: lidocaine 2% viscous 15 ML, aluminum-mag hydrox-simethicon 30 ML, sucralfate oral liq 1 GM PO (15:31)
[2019-12-01] MEDS: ondansetron 2 mg/ML SDV 2 mL 4 MG IVP ×2 (15:32→19:13)
[2019-12-01] MEDS: morphine 4 mg/mL SDV 1 mL 2 MG IVP (15:32)
[2019-12-01 15:36] LABS: Alanine Aminotransferase 19 U/L (0-41); Albumin Level 4.6 g/dL (3.5-5.2); Alkaline Phosphatase 65 IU/L (40-130); Anion Gap 20.4 (5-19); Aspartate Amino Transferase 21 U/L (0-40); Blood Urea Nitrogen 26 mg/dL (6-20); Calcium 9.8 mg/dL (8.5-10.5); Carbon Dioxide 20 mmol/L (22-29); Chloride 98 mmol/L (98-107); Globulin 2.2 g/dL (1.3-4.6); Glomerular Filtration Rate 51.9 mL/min (90-130); Glucose 98 mg/dL (65-115); Lipase 22 U/L (13-60); Osmolality Calculated 277 mOsm/kg (285-295); Potassium 3.4 mmol/L (3.5-5.1); Sodium 135 mmol/L (136-145); Total Bilirubin 0.8 mg/dL (0.15-1.2); Total Protein 6.8 g/dL (6.6-8.7)
[2019-12-01 15:44] LABS: H. Pylori IgG Antibody Negative (Negative)
[2019-12-01] MEDS: morphine 4 mg/mL SDV 1 mL IVP (15:59)
[2019-12-01] MEDS: pantoprazole 40 mg SDV IVP (16:20)
[2019-12-01 16:33] LABS: Troponin(5th) Baseline 24 ng/L (0-15)
--- NOTE | 2019-12-01 17:01 | ECG_ITS ---
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 Measurements Intervals [place] Rate: 83 P: 52 ND: 149 QRS: 43 QRSD: 110 T: 52 QT: 398 QTc: 468 Interpretive Statements SINUS RHYTHM WITH OCCASIONAL SUPRAVENTRICULAR PREMATURE COMPLEXES MINIMAL ST DEPRESSION [0.025+ mV ST DEPRESSION] Compared to ECG 12/01/2019 15:35:44 Short ND interval no longer present ST (T wave) deviation still present Electronically Signed On 12-01-2019 22:50:50 CDT by Betzaida Montejo M.D. [email or web address]
--- NOTE | 2019-12-01 17:07 | CTR_ITS ---
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 3D rendering: MIP and/or 3D reconstructed images were created by the technologist. Radiation optimization: All CT scans at this facility use at least one of these dose optimization techniques: automated exposure control; mA and/or kV adjustment per patient size (includes targeted exams where dose is matched to clinical indication); or iterative reconstruction. Contrast material: VISIPAQUE 320; Contrast volume: 95 ml; Contrast route: INTRAVENOUS (IV); COMPARISON: CT chest w con* [id number] 11/28/2017 11:16 AM RADIATION DOSE METRICS: Total DLP (mGy-cm): 1585.24 FINDINGS: Pulmonary arteries: There is no pulmonary embolus. Aorta: Unremarkable. No aortic aneurysm. No aortic dissection. Lungs: There is subpleural atelectasis of the dependent portions of the lungs. There is airspace opacity in the left lower lobe and lingula compatible with probable pneumonic infiltrates. There are moderate emphysematous changes. Pleural space: Unremarkable. No pneumothorax. No pleural effusion. Heart: Unremarkable. No cardiomegaly. No pericardial effusion. Mediastinal space: A small hiatal hernia is present. Lymph nodes: There is a unchanged 6 mm ground-glass nodule right lung image 45 that is a probable perifissural lymph node. Bones/joints: Unremarkable. No acute fracture. Soft tissues: Unremarkable. Other findings: No new or enlarging pulmonary nodule. IMPRESSION: 1. There is airspace opacity in the left lower lobe and lingula compatible with probable pneumonic infiltrates. 2. There is no pulmonary embolus. 3. Unchanged probable small perifissural lymph node right lung. 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 Radiation optimization: All CT scans at this facility use at least one of these dose optimization techniques: automated exposure control; mA and/or kV adjustment per patient size (includes targeted exams where dose is matched to clinical indication); or iterative reconstruction. Contrast material: VISIPAQUE 320; Contrast volume: 95 ml; Contrast route: INTRAVENOUS (IV); COMPARISON: CT chest w con* [id number] 11/28/2017 11:16 AM RADIATION DOSE METRICS: Total DLP (mGy-cm): 1585.24 FINDINGS: Liver: Unremarkable.No mass. Gallbladder and bile ducts: There has been a cholecystectomy. There is no common bile duct dilation. Pancreas: Normal. No ductal dilation. Spleen: Normal. No splenomegaly. Adrenals: Normal. No mass. Kidneys and ureters: There are postoperative changes of probable partial left nephrectomy with scarring mid to lower pole left kidney. There is no evidence of hydronephrosis. There is no evidence of renal calcifications. Stomach and bowel: No focal gastric wall thickening or ulcer is identified. The duodenum is unremarkable. Mild diverticulosis is present in the distal colon. There is no evidence of colitis/diverticulitis. There is no evidence of intestinal perforation or obstruction. Appendix: A normal appendix is identified. Intraperitoneal space: Unremarkable. No free air. No significant fluid collection. Vasculature: The aorta demonstrates moderate atherosclerotic calcification. Lymph nodes: Unremarkable.No enlarged lymph nodes. Bladder: There is nonspecific bladder wall thickening. This may be related to incomplete distention. Reproductive: The prostate demonstrates mild nonspecific enlargement. The seminal vesicles are normal. Bones/joints: There is severe facet degenerative changes in the lower lumbar spine. There is degenerative grade 2 spondylolisthesis of L5 on S1. No acute bony abnormality. Soft tissues: There is a nonobstructing left inguinal hernia. CT/CT angio chest w abd pel w con IMPRESSION: No acute abnormality in the abdomen or pelvis. Radiation Dose CTDIVOL = (mGy): DLP = 1585.24~1585.24 (mGy-cm)
[2019-12-01] MEDS: HYDROmorphone 1 mg/mL INJ 1 mL IVP (17:18)
[2019-12-01] MEDS: iodixanol 320 mg/mL 100mL Btl IV (18:13)
[2019-12-01 18:17] LABS: Troponin 5 2HR 19.13 ng/L (0-15)
[2019-12-01 18:21] LABS: Troponin 5 2HR Delta -4.87 ABS# (0-10)
[2019-12-01] MEDS: hyDRALAzine 20 mg/mL INJ 1 mL 10 MG IVP (19:08)
[2019-12-01] MEDS: diphenhydrAMINE 50 mg/mL SDV 1mL IVP (19:10)
--- NOTE | 2019-12-01 19:26 | PC.NURSE ---
during pt rounds, pt stating his pain has returned 6/10 in the sme location. B/P elevated. Dr notified. Orders obtained to adm med then monitor prior to D/C
[2019-12-01 19:34] LABS: Urine Appearance Clear (CLEAR); Urine Color Yellow (Yellow)
[2019-12-01 19:35] LABS: Add Urine Microscopic? YES; Bilirubin Urine Neg (NEGATIVE); Blood Urine Neg (Negative); Glucose Urine UA Norm (Normal); Ketones Urine 1+ (Negative); Leukocyte Esterase Urine Negative (Negative); Nitrate Urine Negative (Negative); Protein Urine Trace (Negative); Urobilinogen Urine Norm (Negative); pH Urine 5 (5-7)
[2019-12-01 19:37] LABS: Bacteria Urine TRACE; Mucus Urine 1+; Squamous Epithelial Cell Urine RARE (0-5); WBC Urine 0-4 /hpf (0-5)
[2019-12-01 19:38] LABS: Add Urine Culture? No
--- NOTE | 2019-12-01 20:18 | PC.NURSE ---
pt reassessed after med adm, pt found sleeping soundly with bp of 96/63. Pt states 0/10 pain, ready for d/c
--- NOTE | 2019-12-01 21:01 | ECG_ITS ---
[facility] Test Date: 2019-12-01 Pat Name: Rolando Campbell Department: Room: Gender: Male Tobacco Shaker: : 1960 Requested By: Low Thompson Order Number: [id number] Medrano MD: Betzaida Montejo M.D. Measurements Intervals [place] Rate: 89 P: -8 ND: 110 QRS: 53 QRSD: 102 T: 74 QT: 365 QTc: 445 Interpretive Statements SINUS RHYTHM WITH SHORT ND INTERVAL WITH OCCASIONAL SUPRAVENTRICULAR PREMATURE COMPLEXES MODERATE ST DEPRESSION [0.05+ mV ST DEPRESSION] Compared to ECG 12/21/2017 21:09:42 Short ND interval now present Sinus tachycardia no longer present ST (T wave) deviation still present Electronically Signed On 12-01-2019 22:50:42 CDT by Betzaida Montejo M.D. [email or web address]
== END 2019-12-01 20:25 | disposition home or self-care (01) ==
PROVIDERS: Physician Assistant; Emergency Provider Emergency Medicine; PCP Family Medicine
DX: R10.84 Generalized abdominal pain (principal); J18.9 Pneumonia, unspecified organism; F17.210 Nicotine dependence, cigarettes, uncomplicated
CPT/HCPCS: 12345; 71045; 71275; 74177; 80053; 81001; 81003; 83690; 84484; 85025; 86677; 87040; 87205; 93005; 96361; 96374; 96375; 96376; 99283; 99284; C9113; J0360; J1170; J1200; J2270; J2405; J7030; Q9967

== ENCOUNTER 2020-01-02 15:59 | Emergency (ER) | payer MEDICARE, SELFPAY ==
[2020-01-02 16:01] VITALS: BMI 31.3
[2020-01-02 16:04] VITALS: BP 190/100; PULSE 76; RESP 20; TEMP 36.4; O2SAT 95
--- NOTE | 2020-01-02 16:13 | ED_ITS ---
Documented by User: CHIKIS Washington 01/07/20 07:06 HPI - Abdominal Pain General: Chief Complaint: Abdominal Pain Stated Complaint: ABD PAIN, N/V Time Seen by Provider: 01/02/20 16:03 Source: patient Mode of arrival: ambulatory Limitations: no limitations History of Present Illness: HPI narrative: Patient is a 59-year-old male who presents to ED today with a complaint of epigastric pain. Patient tells me he has a chronic history of intermittent epigastric pain. He has been diagnosed previously with gastric ulcers. Patient tells me he takes Carafate and one other stomach medication that he does not remember the name when he can . Patient tells me he is homeless. He states he often drinks frequently and heavily. Patient states he saw Dr. Aaron approximately a year ago but has had no further evaluation since this appointment. Patient was seen at our facility last month for identical symptoms. Patient has had a few episodes of nonbloody vomit earlier today. He does not describe any coffee-ground emesis. He does not complain of bloody or black stools. MD elicited complaint: abdominal pain Location: Epigastric Severity: moderate Quality: stabbing Radiation: none Migration to: no migration Relieving factors: nothing Associated Symptoms: Reports nausea and vomiting; Denies change in stool character, chills, coffee ground emesis, fever(s), hematochezia, hematemesis and melena Review of Systems Const: Denies: fever(s) or chills ENMT: Denies: throat pain or odynophagia Card: Denies: chest pain Resp: Denies: dyspnea GI: Reports: abdominal pain, nausea and vomiting; Denies: hematemesis, coffee ground emesis, pain on defecation, change in stool character, hematochezia or melena Musc: Denies: neck pain or back pain Neuro: Denies: headache(s), numbness in extremities, weakness in extremities or sensory changes PFSH ED PFSH: Social History Smoking and tobacco status: current every day smoker Physical Exam Const: COMMON NORMALS: average body habitus, patient oriented x3, no limitations, alert and well nourished GENERAL APPEARANCE: cooperative, in distress (appears in pain) and disheveled HENMT: COMMON NORMALS: normocephalic and atraumatic HEAD & SCALP: normocephalic and atraumatic Resp: COMMON NORMALS: normal respiratory effort and clear to auscultation bilaterally AUSCULTATION: clear to auscultation bilaterally Cardio: COMMON NORMALS: regular rate and regular rhythm RATE: regular rate RHYTHM: regular rhythm GI: COMMON NORMALS: Normal to inspection, nondistended, normoactive bowel sounds present, Soft to palpation, No hepatosplenomegaly present and no masses PALPATION: Yes Soft to palpation, Yes Tenderness to palpation present (GI) (epigastric) and Yes No hepatosplenomegaly present Extremity: COMMON NORMALS: normal to inspection Neuro: COMMON NORMALS: patient oriented x3 SENSORIUM/ORIENTATION: Yes alert Skin: COMMON NORMALS: no rashes or lesions noted GENERAL SKIN EXAM: no rashes or lesions noted Course Vital Signs: Vital signs: Vital Signs Temperature 97.5 F L 01/02/20 16:04 Pulse Rate 82 01/02/20 21:54 Respiratory Rate 18 01/02/20 21:54 Blood Pressure 144/68 01/02/20 21:54 Pulse Oximetry 97 01/02/20 21:54 MDM - Abdominal Pain Lab Data: Labs: Lab Results 01/02/20 01/02/20 Range/Units 15:43 15:43 WBC 5.5 (4.0-10.0) 10^3/ uL RBC 4.76 (4.1-5.3) 10^6/u L Hgb 16.3 (11.7-16.6) g/dL Hct 47.3 (42.0-52.0) % MCV 99.4 H (80-94) fL MCH 34.2 H (28.0-34.0) pg MCHC 34.5 (30.0-36.0) g/dL RDW 12.4 (12.1-15.1) % Plt Count 147 (130-400) 10^3/c mm MPV 12.9 H (7.4-10.4) fL Neut % (Auto) 59.5 % Lymph % (Auto) 26.1 % [place] % (Auto) 9.7 % Eos % (Auto) 3.3 % Baso % (Auto) 0.9 % Neut # (Auto) 3.25 (1.8-7.7) 10^3/u L Lymph # (Auto) 1.4 (0.8-4.8) 10^3/u L Bremer # (Auto) 0.5 (0.2-0.9) 10^3/u L Eos # (Auto) 0.2 (0.0-0.8) 10^3/u L Baso # (Auto) 0.1 (0.0-0.1) 10^3/u L Nucleated RBC % (a uto) 0 % Nucleated RBCs # 0.0 /100WBC Sodium 141 (136-145) mmol/L Potassium 3.7 (3.5-5.1) mmol/L Chloride 104 (98-107) mmol/L Carbon Dioxide 23 (22-29) mmol/L Anion Gap 17.7 (5-19) BUN 10 (6-20) mg/dL Creatinine 0.8 (0.7-1.2) mg/dL GFR Calculation 98.9 (90-130) mL/min Glucose 88 (65-115) mg/dL Calculated Osmolal ity 287 (285-295) mOsm/k g Calcium 9.9 (8.5-10.5) mg/dL Total Bilirubin 0.5 (0.15-1.2) mg/dL AST 20 (0-40) U/L ALT 12 (0-41) U/L Alkaline Phosphata se 67 (40-130) IU/L Total Protein 6.9 (6.6-8.7) g/dL Albumin 4.6 (3.5-5.2) g/dL Globulin 2.3 (1.3-4.6) g/dL Lipase 20 (13-60) U/L Discharge Plan Discharge Patient Disposition: Home Clinical Impression: Acute alcoholic gastritis without hemorrhage Condition: Stable Prescriptions: No Action propranolol 20 mg Tablet 20 mg PO TID 30 Days Qty: 90 RF: 1 fluoxetine 20 mg Capsule 20 mg PO DAILY 30 Days Qty: 30 RF: 1 [place] 5-325 mg tablet 1 tab PO Q6H PRN (Reason: pain) Qty: 14 RF: 0 ondansetron 4 mg tablet,disintegrating 4 mg PO Q6H PRN (Reason: nausea and vomiting) Qty: 14 RF: 0 Discharge Orders: Discharge Order (Routine); Ordered 01/02/20 Ordered By: Kameron Flaherty Referrals: Simin Johnson MD [Primary Care Provider] - Discharge Diet: Usual diet Discharge Activity: Increase activity as tolerated Patient Instructions: Gastritis (ED) Activity Restrictions/Additional Instructions: Drink plenty of water. Avoid use of alcohol. Continue with routine medications as ordered. Follow-up with primary care. Return to the emergency department for new concerns. Discharge Date/Time: 01/02/20 21:55 Coding Level of Care Code ED Traffic Signal Supervisor Maintenance for Chg Fwd Exam Detailed Documented by User: [email or web address] Hopper 01/02/20 19:00 HPI - Abdominal Pain General: Chief Complaint: Abdominal Pain Stated Complaint: ABD PAIN, N/V Time Seen by Provider: 01/02/20 16:03 [facility] ED PFSH: Social History Smoking and tobacco status: current every day smoker Course ED course: 1715, received patient from VICTORINO Andrews. wjw [id number], patient continue to have pain, labs are normal. Will address pain with 4 mg of Morphine for gastric distress. Emesis has no blood in it. Reviewed exam with patient and recommendations for follow-up. wjw Vital Signs: Vital signs: Vital Signs Temperature 97.5 F L 01/02/20 16:04 Pulse Rate 82 01/02/20 21:54 Respiratory Rate 18 01/02/20 21:54 Blood Pressure 144/68 01/02/20 21:54 Pulse Oximetry 97 01/02/20 21:54 MDM - Abdominal Pain MDM Narrative: Medical decision making narrative: Patient presented to the emergency room with complaints of gastric distress and emesis. Patient has recurrent episodes of gastritis due to alcohol ingestion. Patient reports he has not been taking his routine medication for his gastritis. Patient appears in mild distress. Abdomen soft nontender. Respirations are even lungs are clear to auscultation. Patient is having bile emesis. Vital signs are normal. Differential diagnosis includes but not limited to pancreatitis, gastritis, malingering. Laboratory values noted no obstructive pattern or signs of elevation of lipase. No blood was noted in the emesis. Patient probably has acute gastritis due to alcohol ingestion. Reviewed exam with patient with recommendations for follow-up. Patient reports understanding agreed to plan. Lab Data: Labs: Lab Results 01/02/20 01/02/20 Range/Units 15:43 15:43 WBC 5.5 (4.0-10.0) 10^3/ uL RBC 4.76 (4.1-5.3) 10^6/u L Hgb 16.3 (11.7-16.6) g/dL Hct 47.3 (42.0-52.0) % MCV 99.4 H (80-94) fL MCH 34.2 H (28.0-34.0) pg MCHC 34.5 (30.0-36.0) g/dL RDW 12.4 (12.1-15.1) % Plt Count 147 (130-400) 10^3/c mm MPV 12.9 H (7.4-10.4) fL Neut % (Auto) 59.5 % Lymph % (Auto) 26.1 % [place] % (Auto) 9.7 % Eos % (Auto) 3.3 % Baso % (Auto) 0.9 % Neut # (Auto) 3.25 (1.8-7.7) 10^3/u L Lymph # (Auto) 1.4 (0.8-4.8) 10^3/u L [place] # (Auto) 0.5 (0.2-0.9) 10^3/u L Eos # (Auto) 0.2 (0.0-0.8) 10^3/u L Baso # (Auto) 0.1 (0.0-0.1) 10^3/u L Nucleated RBC % (a uto) 0 % Nucleated RBCs # 0.0 /100WBC Sodium 141 (136-145) mmol/L Potassium 3.7 (3.5-5.1) mmol/L Chloride 104 (98-107) mmol/L Carbon Dioxide 23 (22-29) mmol/L Anion Gap 17.7 (5-19) BUN 10 (6-20) mg/dL Creatinine 0.8 (0.7-1.2) mg/dL GFR Calculation 98.9 (90-130) mL/min Glucose 88 (65-115) mg/dL Calculated Osmolal ity 287 (285-295) mOsm/k g Calcium 9.9 (8.5-10.5) mg/dL Total Bilirubin 0.5 (0.15-1.2) mg/dL AST 20 (0-40) U/L ALT 12 (0-41) U/L Alkaline Phosphata se 67 (40-130) IU/L Total Protein 6.9 (6.6-8.7) g/dL Albumin 4.6 (3.5-5.2) g/dL Globulin 2.3 (1.3-4.6) g/dL Lipase 20 (13-60) U/L Discharge Plan Discharge Patient Disposition: Home Clinical Impression: Acute alcoholic gastritis without hemorrhage Condition: Stable Prescriptions: No Action propranolol 20 mg Tablet 20 mg PO TID 30 Days Qty: 90 RF: 1 fluoxetine 20 mg Capsule 20 mg PO DAILY 30 Days Qty: 30 RF: 1 [place] 5-325 mg tablet 1 tab PO Q6H PRN (Reason: pain) Qty: 14 RF: 0 ondansetron 4 mg tablet,disintegrating 4 mg PO Q6H PRN (Reason: nausea and vomiting) Qty: 14 RF: 0 Discharge Orders: Discharge Order (Routine); Ordered 01/02/20 Ordered By: Kameron Flaherty Referrals: Simin Johnson MD [Primary Care Provider] - Discharge Diet: Usual diet Discharge Activity: Increase activity as tolerated Patient Instructions: Gastritis (ED) Activity Restrictions/Additional Instructions: Drink plenty of water. Avoid use of alcohol. Continue with routine medications as ordered. Follow-up with primary care. Return to the emergency department for new concerns. Discharge Date/Time: 01/02/20 21:55 Coding Level of Care Code ED Traffic Signal Supervisor Maintenance for Chg Fwd Exam Detailed
[2020-01-02 16:20] LABS: Basophils # 0.1 10^3/uL (0.0-0.1); Basophils % 0.9 %; Eosinophils # 0.2 10^3/uL (0.0-0.8); Eosinophils % 3.3 %; Hematocrit 47.3 % (42.0-52.0); Hemoglobin 16.3 g/dL (11.7-16.6); Lymphocytes # 1.4 10^3/uL (0.8-4.8); Lymphocytes % 26.1 %; Mean Corpuscular HGB Conc 34.5 g/dL (30.0-36.0); Mean Corpuscular Hemoglobin 34.2 pg (28.0-34.0); Mean Corpuscular Volume 99.4 fL (80-94); Mean Platelet Volume 12.9 fL (7.4-10.4); Monocytes # 0.5 10^3/uL (0.2-0.9); Monocytes % 9.7 %; Neutrophils # 3.25 10^3/uL (1.8-7.7); Neutrophils % 59.5 %; Nucleated Red Blood Cells % 0 %; Platelet Count 147 10^3/cmm (130-400); Red Blood Count 4.76 10^6/uL (4.1-5.3); Red Cell Distribution Width 12.4 % (12.1-15.1); White Blood Count 5.5 10^3/uL (4.0-10.0)
[2020-01-02 16:35] LABS: Alanine Aminotransferase 12 U/L (0-41); Albumin Level 4.6 g/dL (3.5-5.2); Alkaline Phosphatase 67 IU/L (40-130); Anion Gap 17.7 (5-19); Aspartate Amino Transferase 20 U/L (0-40); Blood Urea Nitrogen 10 mg/dL (6-20); Calcium 9.9 mg/dL (8.5-10.5); Carbon Dioxide 23 mmol/L (22-29); Chloride 104 mmol/L (98-107); Globulin 2.3 g/dL (1.3-4.6); Glomerular Filtration Rate 98.9 mL/min (90-130); Glucose 88 mg/dL (65-115); Lipase 20 U/L (13-60); Osmolality Calculated 287 mOsm/kg (285-295); Potassium 3.7 mmol/L (3.5-5.1); Sodium 141 mmol/L (136-145); Total Bilirubin 0.5 mg/dL (0.15-1.2); Total Protein 6.9 g/dL (6.6-8.7)
[2020-01-02] MEDS: ondansetron 2 mg/ML SDV 2 mL 4 MG IVP (17:22)
[2020-01-02] MEDS: pantoprazole 40 mg SDV 80 MG IVP (17:23)
[2020-01-02] MEDS: sodium chloride 0.9% 1,000 ML 999 ML IV (17:23)
[2020-01-02] MEDS: lidocaine 2% viscous 15 ML, aluminum-mag hydrox-simethicon 30 ML, sucralfate oral liq 1 GM PO (17:24)
[2020-01-02] MEDS: haloperidol inj 5 mg/mL INJ 1 mL 2 MG IVP (17:47)
[2020-01-02] MEDS: diphenhydrAMINE 50 mg/mL SDV 1mL 25 MG IVP (17:48)
[2020-01-02 19:10] VITALS: RESP 18; O2SAT 97
[2020-01-02] MEDS: morphine 4 mg/mL SDV 1 mL IVP (19:10)
[2020-01-02 21:54] VITALS: BP 144/68; PULSE 82; RESP 18; O2SAT 97
--- NOTE | 2020-01-03 10:16 | DCPLANNER ---
functional manager had message to schedule a follow up appointment for patient with Dr. Crespo. functional manager called the office of Dr. Crespo, spoke with Herlinda, a follow up appointment was scheduled for , January 17, [address] at 2:[address] Crespo. Clinic will call patient with appointment information.
--- NOTE | 2020-02-14 16:13 | DCPLANNER ---
Patient had a follow up appointment scheduled for 01.17.[address] Crespo - patient did not attend appointment.
== END 2020-01-02 21:55 | disposition home or self-care (01) ==
PROVIDERS: Physician Assistant; Emergency Provider Nurse Practitioner Family; PCP Family Medicine
DX: K29.20 Alcoholic gastritis without bleeding (principal); F17.210 Nicotine dependence, cigarettes, uncomplicated
CPT/HCPCS: 12345; 80053; 83690; 85025; 96361; 96374; 96375; 99281; 99283; C9113; J1200; J1630; J2270; J2405; J7030

== ENCOUNTER 2020-01-15 16:55 | Observation (INO) | payer MEDICARE, SELFPAY ==
[2020-01-15 17:37] VITALS: BP 122/75; PULSE 79; RESP 18; TEMP 37.1; O2SAT 93; BMI 27.3
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
[2020-01-15] MEDS: acetaminophen 500 mg Tablet 1000 MG PO (18:44)
[2020-01-15] MEDS: dexamethasone 10 mg/mL INJ IVP (18:44)
[2020-01-15] MEDS: sodium chloride 0.9% 1,000 ML 999 ML IV (18:45)
--- NOTE | 2020-01-15 18:51 | ECG_ITS ---
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 Measurements Intervals [place] Rate: 51 P: 33 AL: 150 QRS: 41 QRSD: 100 T: 20 QT: 437 QTc: 406 Interpretive Statements SINUS BRADYCARDIA Compared to ECG 12/01/2019 17:35:20 Sinus rhythm no longer present ST (T wave) deviation no longer present Electronically Signed On 01-15-2020 20:26:53 CDT by Kinza Carrero M.D. [id number]
--- NOTE | 2020-01-15 18:51 | XRR_ITS ---
PROCEDURE INFORMATION: Exam: XR Chest, 1 View Exam date and time: 01/15/2020 7:14 PM Age: 59 years old Clinical indication: Patient HX: AMS; Dyspnea, cough TECHNIQUE: Imaging protocol: XR of the chest Views: 1 view. COMPARISON: CR XR chest 1V portable [id number] 12/01/2019 3:28 PM FINDINGS: Lungs: There is a persistent oblong airspace opacity along the periphery of the left lower lobe. This is seen to better advantage on preceding CT chest examination. Pleural space: Unremarkable. No pleural effusion. No pneumothorax. Heart/Mediastinum: Unremarkable. No cardiomegaly. Bones/joints: Unremarkable. XR/XR chest 1V portable [id number] IMPRESSION: Increased oblong airspace opacity along the periphery of the left lower lobe, present previously.
[2020-01-15] MEDS: nicotine 21 mg Patch 1 PATCH TRANSDERMA ×2 (19:50→23:04)
[2020-01-15] MEDS: sodium chloride 0.9% 1,000 ML 100 ML IV (19:51)
[2020-01-15] MEDS: ondansetron 2 mg/ML SDV 2 mL 4 MG IVP (19:52)
[2020-01-15 19:54] LABS: Basophils # 0.1 10^3/uL (0.0-0.1); Basophils % 0.9 %; Eosinophils # 0.1 10^3/uL (0.0-0.8); Eosinophils % 1.7 %; Hemoglobin 15.4 g/dL (11.7-16.6); Lymphocytes # 1.1 10^3/uL (0.8-4.8); Lymphocytes % 17.6 %; Mean Corpuscular HGB Conc 33.5 g/dL (30.0-36.0); Mean Corpuscular Volume 101.5 fL (80-94); Mean Platelet Volume 13.1 fL (7.4-10.4); Monocytes # 0.5 10^3/uL (0.2-0.9); Monocytes % 8.4 %; Neutrophils # 4.56 10^3/uL (1.8-7.7); Neutrophils % 71.2 %; Nucleated Red Blood Cells % 0 %; Platelet Count 153 10^3/cmm (130-400); Red Blood Count 4.53 10^6/uL (4.1-5.3); Red Cell Distribution Width 12.5 % (12.1-15.1); White Blood Count 6.4 10^3/uL (4.0-10.0)
[2020-01-15 20:09] LABS: INR 1.02 (0.8-1.2)
[2020-01-15 20:10] LABS: Partial Thromboplastin Time 25.5 SECONDS (23.9-36.7)
[2020-01-15 20:24] LABS: Alanine Aminotransferase 11 U/L (0-41); Alkaline Phosphatase 56 IU/L (40-130); Anion Gap 12.4 (5-19); Aspartate Amino Transferase 16 U/L (0-40); Blood Urea Nitrogen 18 mg/dL (6-20); Calcium 9.4 mg/dL (8.5-10.5); Carbon Dioxide 25 mmol/L (22-29); Chloride 105 mmol/L (98-107); Globulin 2.4 g/dL (1.3-4.6); Glucose 137 mg/dL (65-115); Osmolality Calculated 285 mOsm/kg (285-295); Potassium 4.4 mmol/L (3.5-5.1); Sodium 138 mmol/L (136-145); Thyroid Stimulating Hormone 1.73 uIU/mL (0.27-4.20); Total Bilirubin 0.4 mg/dL (0.15-1.2); Total Protein 6.4 g/dL (6.6-8.7)
[2020-01-15 20:33] LABS: Slide Review Slide Review Perform
[2020-01-15 20:37] LABS: Alcohol Level < 10 mg/dL (0-10)
--- NOTE | 2020-01-15 21:28 | PM.HP ---
Providers/Chief Complaint Primary Care Provider: Simin Johnson MD Chief Complaint: LAB WORK / SEE SPOTS History of Present Illness Rolando Campbell is a 59 year old male who presents with history of dizziness, difficulty reading and keeping his balance he noticed Tuesday. He is not for sure exactly when. He reports this morning he was no better, so came to the emergency department. He had a headache as well earlier but this is now better. No vomiting. No fever. Denies any significant cough. No exposure to COVID, and has not had COVID. He reports he is some improved from yesterday in regards to his dizziness. He denies any prior history of stroke. He reports no double vision. He is homeless and this impairs his ability to get medical care. Review of Systems General: Reports: 10 or more systems reviewed and unremarkable except in HPI and below Const: Denies: fever(s) or chills Eyes: Denies: change in vision ENMT: Denies: throat pain Card: Denies: chest pain Resp: Denies: dyspnea GI: Denies: abdominal pain : Denies: flank pain Musc: Reports: neck pain Skin/Breast: Denies: rash Neuro: Reports: headache(s) and dizziness; Denies: Slurred speech present Psych: Denies: anxiety Endo: Denies: polyuria Malcolm/Lymph: Denies: easy bruising All/Imm: Denies: urticaria Medications/Allergies Home Medications Medication Instructions Recorded Confirmed Last Taken Type fluoxetine 20 mg PO DAILY 30 Days #30 cap 11/13/19 01/15/20 01/15/20 Rx propranolol 20 mg PO TID 30 Days #90 tab 11/13/19 01/15/20 01/15/20 Rx ondansetron 4 mg PO Q6H PRN #14 tab 12/01/19 01/15/20 Unknown Rx [place]'s wort 300 mg PO DAILY 01/15/20 01/15/20 01/15/20 History ginkgo biloba 60 mg PO BID 01/15/20 01/15/20 01/15/20 History ginseng 100 mg PO DAILY 01/15/20 01/15/20 01/15/20 History multivitamin [Multiple Vitamins] 1 tab PO DAILY 01/15/20 01/15/20 01/15/20 History sucralfate 1 g PO QID 01/15/20 01/15/20 01/15/20 History testosterone See Rx Instructions .ROUTE .COMPLEX 01/15/20 01/15/20 01/15/20 History Allergies Allergy/AdvReac Type Severity Reaction Status Date / Time No Known Allergies Allergy Verified 01/15/20 17:57 PFSH Acute PFSH: Medical History (Updated 01/15/20 @ 23:48 by David Perez MD) Alcoholism Chronic back pain Depression Gastritis Tobacco dependency Surgical History (Updated 01/15/20 @ 23:48 by David Perez MD) History of cholecystectomy Family History (Updated 01/15/20 @ 23:48 by David Perez MD) Other Cancer Social History (Updated 01/15/20 @ 23:49 by David Perez MD) Smoking and tobacco status: current every day smoker Alcohol intake: current Alcohol intake frequency: 3 or more drinks per day Alcohol type: hard liquor Substance/Drug Use: former Vitals/I&O/Wt Last Vital Signs Temp 98.7 F 01/15/20 17:37 Pulse 79 01/15/20 17:37 Resp 18 01/15/20 17:37 BP 122/75 01/15/20 17:37 Pulse Ox 93 01/15/20 17:37 Weight last 48 hrs Weight 81.647 kg Physical Exam Narrative: EXAM NARRATIVE: General exam is a white male, conversant and pleasant in no obvious distress Neurologic: Initial NIH score 4. I did not get a chance to ambulate the patient. Visual field testing was questionable but it was hard otherwise to note any particular deficit. No cerebellar dysfunction was noted. Extraocular movements were intact. Skin no rash HEENT: Pupils equally round. Oropharynx clear. Neck is supple no lymphadenopathy or thyromegaly Cardiovascular regular rate and rhythm without murmur. No S3 or S4 Lungs clear no wheezing or crackles Abdomen is soft nontender with positive bowel sounds. No obvious organomegaly was deferred Extremities no cyanosis clubbing or edema, cap refill brisk Data : 01/15/20 19:48 01/15/20 19:48 Other data: MCV elevated at 101. LFTs normal. Urinalysis 5-10 reds, 0-4 whites. Alcohol level less than 10. Head CT edema, right occipital lobe consistent with new CVA EKG normal sinus rhythm, normal axis, slight bradycardia at 57 Chest x-ray no obvious infiltrate by my read A&P Assessment and plan (1) CVA (cerebral vascular accident): Initiate aspirin, Plavix Initiate high intensity statin Check echocardiogram, carotid duplex Not candidate for TPA or thrombectomy Hydration overnight PT/OT evaluation Status: Acute (2) Hyperglycemia: Check hemoglobin A1c Status: Acute (3) Alcohol use disorder: Thiamine 100 mg p.o. daily Monitor for any withdrawal Status: Acute (4) Tobacco dependency: Nicotine patch Counseled 3 to 5 minutes Status: Acute Additional A&P Information History of depression, continue home meds History of alcoholic gastritis Protonix 40 mg twice daily Chronic back pain Full code Lovenox for DVT prophylaxis Attestations Medical Necessity Statement*: Will need less than 2 midnight stay for evaluation and treatment of CVA Time Spent in Patient Care: Greater than 35 minutes Coding Level of Care Code Acute Vacuum Cleaner Repair Person for Steve Alstond Diagnoses CVA (cerebral vascular accident) I63.9 Hyperglycemia R73.9 Alcohol use disorder Tobacco dependency F17.200
[2020-01-15 22:08] VITALS: BP 141/108; PULSE 79; RESP 16; O2SAT 96
[2020-01-15 22:17] LABS: Estmated Average Glucose 97
[2020-01-15 22:30] VITALS: BP 150/91; PULSE 69; RESP 18; TEMP 36.7; O2SAT 99
[2020-01-15 22:35] LABS: Add Urine Microscopic? YES; Bacteria Urine 2+; Bilirubin Urine 1+ (NEGATIVE); Blood Urine Neg (Negative); Glucose Urine UA Norm (Normal); Ketones Urine Negative (Negative); Leukocyte Esterase Urine Negative (Negative); Mucus Urine 1+; Nitrate Urine Negative (Negative); Protein Urine 1+ (Negative); Specific Gravity, Urine 1.025 (1.005-1.030); Squamous Epithelial Cell Urine 0-4 (0-5); Urine Appearance SL Hazy (CLEAR); Urine Color Yellow (Yellow); Urobilinogen Urine 1 mg/dL (Negative); WBC Urine 0-4 /hpf (0-5); pH Urine 5 (5-7)
[2020-01-15] MEDS: sodium chloride 0.9% 1,000 ML 50 ML IV (23:04)
[2020-01-15] MEDS: enoxaparin 40 mg/0.4 mL Syringe SUBCUT (23:04)
[2020-01-15 23:37] VITALS: BP 132/78; PULSE 72; RESP 14; TEMP 36.7; O2SAT 97
[2020-01-16 04:00] VITALS: BP 147/87; PULSE 70; RESP 18; TEMP 36.6; O2SAT 98
[2020-01-16 05:40] LABS: Basophils % 0.4 %; Hematocrit 50.1 % (42.0-52.0); Hemoglobin 15.9 g/dL (11.7-16.6); Lymphocytes # 0.6 10^3/uL (0.8-4.8); Lymphocytes % 11.9 %; Mean Corpuscular HGB Conc 31.7 g/dL (30.0-36.0); Mean Corpuscular Hemoglobin 34.1 pg (28.0-34.0); Mean Corpuscular Volume 107.5 fL (80-94); Mean Platelet Volume 12.7 fL (7.4-10.4); Monocytes # 0.2 10^3/uL (0.2-0.9); Neutrophils # 4.56 10^3/uL (1.8-7.7); Neutrophils % 84.3 %; Nucleated Red Blood Cells % 0 %; Platelet Count 145 10^3/cmm (130-400); Red Blood Count 4.66 10^6/uL (4.1-5.3); Red Cell Distribution Width 12.5 % (12.1-15.1); White Blood Count 5.4 10^3/uL (4.0-10.0)
[2020-01-16 05:58] LABS: Alanine Aminotransferase 13 U/L (0-41); Albumin Level 3.8 g/dL (3.5-5.2); Alkaline Phosphatase 51 IU/L (40-130); Aspartate Amino Transferase 17 U/L (0-40); Blood Urea Nitrogen 21 mg/dL (6-20); Calcium 8.8 mg/dL (8.5-10.5); Carbon Dioxide 16 mmol/L (22-29); Chloride 102 mmol/L (98-107); Creatinine Clr Calc Pharmacy 92.1235; Globulin 2.5 g/dL (1.3-4.6); Glomerular Filtration Rate 86.4 mL/min (90-130); Glucose 189 mg/dL (65-115); Osmolality Calculated 280 mOsm/kg (285-295); Sodium 134 mmol/L (136-145); Total Bilirubin 0.4 mg/dL (0.15-1.2); Total Protein 6.3 g/dL (6.6-8.7)
[2020-01-16 06:02] LABS: Anion Gap 20.5 (5-19); Potassium 4.5 mmol/L (3.5-5.1)
[2020-01-16 06:14] VITALS: PULSE 72; O2SAT 98
[2020-01-16 06:14] LABS: Slide Review Slide Review Perform
[2020-01-16 06:22] LABS: Chol HDL Ratio 4.13 mg/dL (1.0-5.00); Cholesterol 165 mg/dL (0-200); HDL Cholesterol 40 mg/dL (60-100); LDL Cholesterol Calculated 108 mg/dL (50-129); Triglycerides 84 mg/dL (0-150)
[2020-01-16 08:00] VITALS: BP 138/91; PULSE 63; RESP 16; TEMP 36.9; O2SAT 99
[2020-01-16] MEDS: clopidogrel 75 mg Tablet PO (09:06)
[2020-01-16] MEDS: fluoxetine 20 mg Capsule PO (09:06)
[2020-01-16] MEDS: pantoprazole DR 40 mg Tablet PO ×2 (09:06→18:20)
[2020-01-16] MEDS: aspirin 81 mg EC Tablet PO (09:06)
[2020-01-16] MEDS: propranolol 20 mg Tablet PO ×3 (09:06→22:17)
[2020-01-16] MEDS: atorvastatin 40 mg Tablet PO (09:06)
[2020-01-16] MEDS: thiamine 100 mg Tablet PO (09:06)
[2020-01-16] MEDS: sodium chloride 0.9% 1,000 ML 100 ML IV ×2 (09:08→14:57)
[2020-01-16 12:00] VITALS: BP 145/83; PULSE 77; RESP 16; TEMP 37; O2SAT 98
[2020-01-16 16:00] VITALS: BP 147/86; PULSE 51; RESP 16; TEMP 37; O2SAT 99
--- NOTE | 2020-01-16 17:10 | P.PN_ITS ---
Subjective Subjective: Interval history: Chart reviewed, hemodynamically stable, afebrile. Reports feeling well, about the same as yesterday. Working on trying to find alternative and more appropriate accommodation. States that his vision has been impaired for some time and he has not noted much in the way of additional deficits. Did well with his therapy evaluations. Medications: Reviewed: Yes Medication Review Details: Active Medications Generic Name Dose Route Start Last Admin Trade Name Freq PRN Reason Stop Dose Admin Acetaminophen 650 mg 01/15/20 22:40 Tylenol PO Q6H PRN Mild/Mod Pain Or Temp >/= 101 Aspirin 81 mg 01/16/20 09:00 01/16/20 09:06 Aspirin Ec PO 81 mg DAILY TIFFANY Administration Atorvastatin Calci um 40 mg 01/16/20 09:00 01/16/20 09:06 Lipitor PO 40 mg DAILY TIFFANY Administration Clopidogrel Bisulf ate 75 mg 01/16/20 09:00 01/16/20 09:06 Plavix PO 75 mg DAILY TIFFANY Administration Enoxaparin Sodium 40 mg 01/15/20 23:00 01/15/20 23:04 Lovenox SUBCUT 40 mg Q24H TIFFANY Administration Fluoxetine HCl 20 mg 01/16/20 09:00 01/16/20 09:06 Prozac PO 20 mg DAILY TIFFANY Administration Sodium Chloride 1,000 mls @ 100 m ls/hr 01/15/20 19:00 01/16/20 14:57 Sodium Chloride 0.9% IV 100 mls/hr .Q10H TIFFANY Administration Sodium Chloride 1,000 mls @ 50 ml s/hr 01/15/20 22:40 01/15/20 23:04 Sodium Chloride 0.9% IV 50 mls/hr .Q20H TIFFANY Administration Nicotine 1 patch 01/15/20 22:40 01/15/20 23:04 Nicoderm 21 Mg P atch TRANSDERMA 1 patch Q24H TIFFANY Administration Ondansetron HCl 4 mg 01/15/20 22:40 Zofran IVP Q6H PRN vomiting, or N/V if npo Pantoprazole Sodiu m 40 mg 01/16/20 09:00 01/16/20 09:06 Protonix PO 40 mg BID TIFFANY Administration Propranolol HCl 20 mg 01/16/20 09:00 01/16/20 14:57 Inderal PO 20 mg TID TIFFANY Administration Thiamine Mononitra te 100 mg 01/16/20 09:00 01/16/20 09:06 Vitamin B-1 PO 100 mg DAILY TIFFANY Administration No Known Allergies Allergy (Verified 01/15/20 17:57) Vitals/I&O/Wt Last Vital Signs Temp 98.6 F 01/16/20 16:00 Pulse 51 L 01/16/20 16:00 Resp 16 01/16/20 16:00 BP 147/86 01/16/20 16:00 Pulse Ox 99 01/16/20 16:00 01/16/20 01/16/20 01/16/20 06:59 14:59 22:59 Intake Total 1000 / 1000 1301.667 / 1301.667 Balance 1000 / 1000 1301.667 / 1301.667 Weight last 48 hrs Weight 81.647 kg Physical Exam Const: COMMON NORMALS: no acute distress, patient oriented x3 and alert GENERAL APPEARANCE: cooperative and comfortable ORIENTATION/CONSCIOUSNESS: Yes awake HENMT: COMMON NORMALS: normocephalic, atraumatic, hearing grossly normal bilaterally and moist oral mucous membranes HEAD & SCALP: normocephalic and atraumatic Eye: COMMON NORMALS: Equal, round and reactive pupils present, EOMs intact bilaterally and conjunctivae normal CONJUNCTIVA: Yes conjunctivae normal PUPIL: Yes Equal, round and reactive pupils present Neck/C-Spine: COMMON NORMALS: full ROM GENERAL: Yes normal visual inspection and Yes trachea midline Resp: COMMON NORMALS: normal respiratory effort, No retractions, No use of accessory muscles and clear to auscultation bilaterally EFFORT & INSPECTION: Yes able to speak in complete sentences, Yes symmetric chest movement and No tachypneic AUSCULTATION: clear to auscultation bilaterally OTHER: -on RA Cardio: COMMON NORMALS: regular rate, regular rhythm, S1 normal heart sound present, S2 normal heart sound present and No murmurs present (Cardio) RATE: regular rate RHYTHM: regular rhythm HEART SOUNDS: S1 normal heart sound present and S2 normal heart sound present GI: COMMON NORMALS: Normal to inspection, nondistended, normoactive bowel sounds present, Soft to palpation and non-tender PALPATION: Yes Soft to palpation Extremity: COMMON NORMALS: normal to inspection, full ROM and no clubbing, cyanosis or edema; negative for no pedal edema Neuro: COMMON NORMALS: patient oriented x3, moves all extremities, no focal motor deficits and no sensory deficits noted SENSORIUM/ORIENTATION: Yes alert Psych: COMMON NORMALS: mental status grossly normal, Normal thought process present, cooperative, normal affect and speech normal SPEECH: Yes normal spee ch THOUGHT PROCESS: Normal thought process present Skin: COMMON NORMALS: no rashes or lesions noted, no jaundice, no petechiae and no mottling GENERAL SKIN EXAM: no rashes or lesions noted Data : 01/16/20 05:00 01/16/20 05:00 A&P Assessment and plan (1) CVA (cerebral vascular accident): -presented with dizziness, balance issues; due to timeline of presentation, not appropriate candidate for tPA -noted to have evidence of R occipital infarct on CT head -carotid US: <50% bilateral ICA stenosis -Echo: EF=60-65%, no RWMA, mild LVH -PT/OT evaluations appreciated -continue ASA, Plavix, statin -BP appropriate; continue to monitor vital signs -telemetry monitoring -noted A1c, TSH, lipid panel Status: Acute Qualifiers: CVA mechanism: unspecified Qualified Code(s): I63.9 - Cerebral infarction, unspecified (2) Tobacco dependency: -nicotine replacement therapy Status: Chronic (3) Hyperglycemia: -A1c-5.0 Status: Acute (4) Alcohol use disorder: -EtOH screen negative Status: Chronic Additional A&P Information -Gastritis secondary to EtOH use; on PPI -Depression -Chronic back pain -cardiac diet as tolerated -GI ppx with PPI -DVT ppx with lovenox -Dispo: has been living in storage unit, working on more appropriate accommodation; case management on board -Code status: FULL code Attestations Medical Necessity Statement*: Patient requires hospitalization for continued post-CVA care; working on alternative disposition. Time Spent in Patient Care: 16 - 35 minutes (>than 50% of time spent in counselling and/or direct pt care on unit) . Coding Level of Care Code Acute Personnel Training Officer for Steve Fwd Diagnoses CVA (cerebral vascular accident) I63.9 CVA mechanism: unspecified Tobacco dependency F17.200 Hyperglycemia R73.9 Alcohol use disorder
[2020-01-16 20:00] VITALS: BP 120/76; PULSE 67; RESP 18; TEMP 36.4; O2SAT 98
[2020-01-16] MEDS: nicotine 21 mg Patch 1 PATCH TRANSDERMA (22:17)
[2020-01-16] MEDS: enoxaparin 40 mg/0.4 mL Syringe SUBCUT (22:17)
--- NOTE | 2020-01-16 22:40 | USCV_ITS ---
Rolando Campbell Age: 59 Gender: M : 1960 Exam Date: 01/16/2020 06:08 Ordering Phys: David Perez MD Technologist: Carmita Boyer Exam Location: [facility] – [place] Indication: CVA BP: 147 / 87 HR: 62 Rhythm: Sinus Technical Quality: Adequate MEASUREMENTS (Male / Female) Normal Values 2D ECHO LV Diastolic Diameter PLAX 4.0 cm 4.2 - 5.9 / 3.9 - 5.3 cm LV Systolic Diameter PLAX 2.8 cm LV Chamber Size 4.4 cm IVS Diastolic Thickness 1.8 cm 0.6 - 1.0 / 0.6 - 0.9 cm IVS Systolic Thickness 1.9 cm LVPW Diastolic Thickness 1.6 cm 0.6 - 1.0 / 0.6 - 0.9 cm LVPW Systolic Thickness 2.3 cm RV Chamber Size 2.5 cm LVOT Diameter 2.1 cm LV Ejection Fraction 2D Teich 60.5 % LV Ejection Fraction MOD 2C 63.3 % LV Ejection Fraction 2C AL 61.9 % LA Diameter 3.7 cm LA Width 3.4 cm LA Height 5.0 cm RA Width 3.7 cm RA Height 3.8 cm Aorta at Sinotubular Diameter 2.6 cm M-MODE LV Diastolic Diameter MM 4.6 cm 4.2 - 5.9 / 3.9 - 5.3 cm LV Systolic Diameter MM 2.7 cm LV Ejection Fraction MM Teich 72.2 % IVS Diastolic Thickness MM 0.8 cm 0.6 - 1.0 / 0.6 - 0.9 cm IVS Systolic Thickness MM 1.0 cm LVPW Diastolic Thickness MM 0.8 cm 0.6 - 1.0 / 0.6 - 0.9 cm LVPW Systolic Thickness MM 1.4 cm Aortic Annulus Diameter 3.5 cm LA Ao Ratio MM 1.1 MV E Point Septal Separation 0.8 cm DOPPLER AV Peak Velocity 110.0 cm/s LVOT Peak Velocity 103.0 cm/s AV Area Cont Eq vti 3.4 cm squared AV Area Cont Eq pk 3.2 cm squared MV Area PHT 2.9 cm squared Mitral E to A Ratio 0.9 MV E' Velocity 9.0 cm/s Mitral E to MV E' Ratio 7.5 Mitral E to LV E' Lateral Ratio 6.3 Mitral E to LV E' Septal Ratio 9.3 TR Peak Velocity 131.0 cm/s TR Peak Gradient 6.9 mmHg TV Peak E Velocity 46.0 cm/s Right Atrial Pressure 3.0 mmHg Pulmonary Artery Systolic Pressu 9.9 mmHg PV Peak Velocity 85.0 cm/s RV Acceleration Time 0.2 s RV Ejection Time 0.4 s RV AcT/ET 0.4 FINDINGS Left Ventricle Normal left ventricular size and systolic function with no regional wall motion abnormalities. LVEF is 60 to 65%. Mild LVH is noted. Diastolic dysfunction is noted Right Ventricle The right ventricle is normal in size and function. Right Atrium The right atrium is normal in size. Left Atrium The left atrium is normal in size. Mitral Valve Structurally normal mitral valve without significant stenosis or prolapse. There is no mitral regurgitation. Aortic Valve Structurally normal aortic valve without significant sclerosis or stenosis. There is no aortic regurgitation. Tricuspid Valve Structurally normal tricuspid valve without significant stenosis or regurgitation. Insufficient TR jet to calculate RVSP. Pulmonic Valve Structurally normal pulmonic valve without significant stenosis. There is no pulmonic regurgitation. Pericardium Normal pericardium without effusion. Aorta Normal ascending aorta dimension. CONCLUSIONS Normal LV systolic function with EF of 60 to 65%. Mild LVH is noted. Diastolic dysfunction is present. Ottoniel Pastrana MD (Electronically Signed) Final Date: 16 January 2020 10:06 S
--- NOTE | 2020-01-16 22:40 | USCV_ITS ---
Rolando Campbell Age: 59 Gender: M : 1960 Exam Date: 01/16/2020 06:22 Ordering Phys: David Perez MD Technologist: Carmita Boyer Exam Location: [facility] [place] Indication: CVA Risk Factors: Previous Vascular Surgery: Right Brachial BP: / Left Brachial BP: / Right Left Velocity (cm/s) Spectral Plaque Velocity (cm/s) Spectral Plaque Syst/Diast Broadening Syst/Diast Broadening 101.40/20.90 Prox CCA 56.10 / 18.20 63.90/ 20.90 Mid CCA 71.80 / 21.40 62.80/ 16.50 Distal CCA 54.70 / 9.40 41.00/ 20.50 Prox ICA 44.40 / 20.50 55.50/ 20.50 Mid ICA 61.50 / 29.10 62.40/ 26.50 Distal ICA 52.80 / 19.20 88.20 ECA 103.40 0.98 ICA/CCA 0.86 Antegrade Vertebral Antegrade 23.00/ 8.50 cm/s 15.30/ 6.60 cm/s Tri Subclavian Tri 59.30 112.4 0 FINDINGS Comparison: none available. No significant elevation of systolic or diastolic velocities. Diffuse bilateral scattered calcified plaque and intimal thickening throughout the common carotid arteries and extending through the bifurcation. CONCLUSIONS Bilateral ICA stenosis less than 50%. Mild bilateral carotid atherosclerosis. Dr. Fernanda Lo DO (Electronically Signed) Final Date: 16 January 2020 08:35 S
[2020-01-17] VITALS: BP 114/66; PULSE 58; RESP 17; TEMP 36.6; O2SAT 98
[2020-01-17 04:00] VITALS: BP 133/83; PULSE 50; RESP 18; TEMP 36.2; O2SAT 96
--- NOTE | 2020-01-17 05:25 | PC.NURSE ---
WHILE IN THE PATIENT'S ROOM STARTING A NEW IV THE PATIENT MADE INAPPROPRIATE COMMENTS TOWARDS THIS NURSE. WHEN ASKED TO HOLD HIS RIGHT ARM UP TO PLACE A GINA PAD UNDER IT, HE WENT ON TO SAY ABOUT A C CUP HUH? . THIS NURSE DID NOT REPLY TO THE COMMENT. THE NEW IV WAS PLACED AND WHILE CLEANING UP THE PATIENT THEN ASKED CAN I PULL YOUR BRAID? THIS NURSE STATED THAT IS INAPPROPRIATE. THIS WAS REPORTED TO THE CHARGE NURSE AND WILL BE REPORTED TO THE CONCRETE GUN OPERATOR.
[2020-01-17] MEDS: propranolol 20 mg Tablet PO (07:53)
[2020-01-17] MEDS: atorvastatin 40 mg Tablet PO (07:54)
[2020-01-17] MEDS: thiamine 100 mg Tablet PO (07:54)
[2020-01-17] MEDS: fluoxetine 20 mg Capsule PO (07:54)
[2020-01-17] MEDS: clopidogrel 75 mg Tablet PO (07:54)
[2020-01-17] MEDS: pantoprazole DR 40 mg Tablet PO (07:54)
[2020-01-17] MEDS: aspirin 81 mg EC Tablet PO (07:54)
[2020-01-17 07:58] VITALS: BP 136/78; PULSE 52; RESP 18; TEMP 36.9; O2SAT 93
[2020-01-17 11:13] VITALS: BP 123/80; PULSE 52; RESP 20; TEMP 36.9; O2SAT 93
--- NOTE | 2020-01-17 11:58 | PM.DCS ---
Discharge Providers Date of Admission: 01/15/20 21:42 Date of Discharge: January 17, 2020 Attending Provider at Admission: David Perez MD Attending Provider at Discharge: Idalia Roque MD Consults: None Primary Care Provider: Simin Johnson MD Diagnoses at Discharge Discharge Diagnosis (1) CVA (cerebral vascular accident): Status: Acute Problem details: -presented with dizziness, balance issues; due to timeline of presentation, not appropriate candidate for tPA -noted to have evidence of R occipital infarct on CT head -carotid US: <50% bilateral ICA stenosis -Echo: EF=60-65%, no RWMA, mild LVH -PT/OT evaluations appreciated -continue ASA, Plavix, statin -BP appropriate; continue to monitor vital signs -telemetry monitoring -noted A1c, TSH, lipid panel Qualifiers: CVA mechanism: unspecified Qualified Code(s): I63.9 - Cerebral infarction, unspecified (2) Tobacco dependency: Status: Chronic Problem details: -nicotine replacement therapy -smoking cessation encouraged (3) Hyperglycemia: Status: Acute Problem details: -A1c-5.0 (4) Alcohol use disorder: Status: Chronic Other Information Additional DC diagnoses/information: -Gastritis secondary to EtOH use; on PPI -Depression -Chronic back pain Reason for Visit Reason for Visit: LAB WORK / SEE SPOTS Hospital Course Hospital Course: Patient was admitted to the medical surgical floor and placed on telemetry monitoring. He was found to have right occipital infarct on CT scan of the head done as part of his work-up given his presenting symptoms of vision deficits, dizziness and difficulty with balance. Given timeline of presentation he was not deemed an appropriate tPA candidate. Carotid ultrasound, echo are as noted above. He reports having had pre-existing vision issues and has not noticed much in the way of increased deficits. He did not have any other apparent neurological deficits. Has been evaluated by therapy and cleared for discharge home. His current social situation is complicated as he is currently living in storage unit but she reports working on alternative and more appropriate housing. He has been hemodynamically stable, afebrile, he has been noted to have some intermittent bradycardia though asymptomatic. He will need follow-up with his primary care provider as well as with neurology. He is encouraged to seek medical attention immediately should any of his symptoms worsen or recur. He has been started on aspirin, Plavix and statin for secondary prevention given stroke. Of note he had some mild renal impairment that has now resolved. Resources for housing have been provided through case management. Discharge Summary: -Patient to follow-up with primary care provider within 1 week -Patient to follow-up with Dr. Garcia as soon as next available appointment Physical Exam Const: COMMON NORMALS: no acute distress, patient oriented x3 and alert GENERAL APPEARANCE: cooperative and comfortable ORIENTATION/CONSCIOUSNESS: Yes awake HENMT: COMMON NORMALS: normocephalic, atraumatic, hearing grossly normal bilaterally and moist oral mucous membranes HEAD & SCALP: normocephalic and atraumatic Eye: COMMON NORMALS: Equal, round and reactive pupils present, EOMs intact bilaterally and conjunctivae normal CONJUNCTIVA: Yes conjunctivae normal PUPIL: Yes Equal, round and reactive pupils present Neck/C-Spine: COMMON NORMALS: full ROM GENERAL: Yes normal visual inspection and Yes trachea midline Resp: COMMON NORMALS: normal respiratory effort, No retractions, No use of accessory muscles and clear to auscultation bilaterally EFFORT & INSPECTION: Yes able to speak in complete sentences, Yes symmetric chest movement and No tachypneic AUSCULTATION: clear to auscultation bilaterally OTHER: -on RA Cardio: COMMON NORMALS: regular rate, regular rhythm, S1 normal heart sound present, S2 normal heart sound present and No murmurs present (Cardio) RATE: regular rate RHYTHM: regular rhythm HEART SOUNDS: S1 normal heart sound present and S2 normal heart sound present GI: COMMON NORMALS: Normal to inspection, nondistended, normoactive bowel sounds present, Soft to palpation and non-tender PALPATION: Yes Soft to palpation Extremity: COMMON NORMALS: normal to inspection, full ROM and no clubbing, cyanosis or edema; negative for no pedal edema Neuro: COMMON NORMALS: patient oriented x3, moves all extremities, no focal motor deficits and no sensory deficits noted SENSORIUM/ORIENTATION: Yes alert Psych: COMMON NORMALS: mental status grossly normal, Normal thought process present, cooperative, normal affect and speech normal SPEECH: Yes normal speech THOUGHT PROCESS: Normal thought process present Skin: COMMON NORMALS: no rashes or lesions noted, no jaundice, no petechiae and no mottling GENERAL SKIN EXAM: no rashes or lesions noted Discharge Data Data Completed and Pending: Completed Studies During Hospitalization Category Date Time Status CT head wo con* [id number] Urgent Cat Scan 01/15/20 17:47 Completed XR chest 1V ginger ble [id number] Stat Exams 01/15/20 18:51 Completed CV carotid duplex BI* [id number] Routine Ultrasound 01/16/20 22:40 Completed CV echo complete* [id number] Routine Ultrasound 01/16/20 22:40 Completed Vitals: Last Vital Signs Temp 98.4 F 01/17/20 11:13 Pulse 52 L 01/17/20 11:13 Resp 20 H 01/17/20 11:13 BP 123/80 01/17/20 11:13 Pulse Ox 93 01/17/20 11:13 Discharge Plan Discharge Patient Disposition: Home Condition: Stable Prescriptions: New atorvastatin 40 mg Tablet 40 mg PO BEDTIME 30 Days Qty: 30 RF: 0 clopidogrel 75 mg Tablet 75 mg PO DAILY 30 Days Qty: 30 RF: 0 aspirin 81 mg Tablet,Delayed Release (Dr/Ec) 81 mg PO DAILY 30 Days Qty: 30 RF: 0 Continued propranolol 20 mg Tablet 20 mg PO TID 30 Days Qty: 90 RF: 1 fluoxetine 20 mg Capsule 20 mg PO DAILY 30 Days Qty: 30 RF: 1 Multiple Vitamins Tablet 1 tab PO DAILY RF: 0 sucralfate 1 gram tablet 1 g PO QID RF: 0 ondansetron 4 mg tablet,disintegrating 4 mg PO Q6H PRN (Reason: nausea and vomiting) Qty: 14 RF: 0 Discontinued ginseng 100 mg Capsule 100 mg PO DAILY RF: 0 Jordan's wort 300 mg Tablet 300 mg PO DAILY RF: 0 ginkgo biloba 60 mg Capsule 60 mg PO BID RF: 0 testosterone See Rx Instructions .ROUTE .COMPLEX RF: 0 Discharge Orders: Discharge Order (Routine); Ordered 01/17/20 Ordered By: Idalia Roque Referrals: Princess Garcia MD [Physician] - 1 month (Post CVA follow up) Simin Johnson MD [Primary Care Provider] - 4-7 days (Post hospital discharge follow up) Discharge Diet: Regular Discharge Activity: Increase activity as tolerated Activity Restrictions/Additional Instructions: -Please avoid driving or operating heavy machinery due to visual difficulties -Decreased use or complete avoidance of smoking and alcohol strongly encouraged Discharge Attestations Time Spent in Discharge Care*: less than 30 min Specific Discharge Activities: Specific discharge activities: educating patient, discussing with case loader operator/social workers/dc planners, documenting/other paperwork and evaluating patient/reviewing data Status at Discharge: Cognitive status at discharge: cognitively intact, Behavioral status at discharge: cooperative and independent in ADL's, Functional status at discharge: independent ambulation Overall status at discharge: patient is progressing back to baseline Quality Metrics Clinical Quality Measures During this hospital stay, did patient experience: Stroke Contraindication to Antithrombotic: Drug treatment not indicated (Outside timeline for tPA on presentation) Contraindication to Anticoagulation: Anticoagulation prescribed Contraindication to Statin: Statin prescribed Reason rehab assessment not done: Rehab assessment done Coding Level of Care Code Acute Environmental Engineering Manager for [employer] Fwd Diagnoses CVA (cerebral vascular accident) I63.9 CVA mechanism: unspecified Tobacco dependency F17.200 Hyperglycemia R73.9 Alcohol use disorder
[2020-01-17 12:26] VITALS: BP 123/80; PULSE 52; RESP 20; TEMP 36.9; O2SAT 93
== END 2020-01-17 13:59 | disposition home or self-care (01) ==
LOC: ER 18:41 → MEDSURG 22:02
PROVIDERS: Emergency Medicine; Admitting Provider Internal Medicine; Emergency Provider Physician Assistant; PCP Family Medicine; Visit Provider Family Medicine
DX: I63.9 Cerebral infarction, unspecified (principal); F17.210 Nicotine dependence, cigarettes, uncomplicated; R73.9 Hyperglycemia, unspecified; F10.10 Alcohol abuse, uncomplicated; K29.20 Alcoholic gastritis without bleeding; F32.9 Major depressive disorder, single episode, unspecified; M54.9 Dorsalgia, unspecified; G89.29 Other chronic pain; R42 Dizziness and giddiness
CPT/HCPCS: 12345; 36415; 70450; 71045; 80053; 80061; 80307; 81001; 83036; 83735; 84443; 85025; 85610; 85730; 93005; 93306; 93880; 96361; 96372; 96374; 96375; 97161; 97165; 97530; 99283; 99285; G0378; J1100; J1650; J2405; J7030

== ENCOUNTER 2020-06-23 07:16 | Inpatient (IN) | payer MEDICARE, SELFPAY ==
[2020-06-23 07:17] VITALS: BP 145/83; PULSE 91; RESP 18; TEMP 36.8; O2SAT 98
--- NOTE | 2020-06-23 07:36 | W.ED.PSYCH ---
HPI - Psych General: Chief Complaint: Psychiatric Symptoms Stated Complaint: SI, LAC TO L ELBOW Time Seen by Provider: 06/23/20 07:19 History of Present Illness: HPI Narrative: 60-year-old male presents to the emergency room via EMS. He made statements to EMS that he wanted to harm himself he make allusions to it and then the same conversation denies he would ever harm himself. Several times makes claiming he was take a pill and just or go to sleep permanently. He states he feels hopeless. Patient smells strongly of alcohol. He reports having multiple falls recently and he is laceration extensor surface of his left elbow. He refuses to allow us to clean it or to suture it states he has had thousands of sutures in the past and he does not want anymore. MD complaint: suicidal ideation and feels depressed Onset (ago): month(s) Duration: constant History of same: Yes Relieving factors: none Exacerbating factors: none Associated psychiatric symptoms: none Associated symptoms: Reports depression and suicidal ideation; Deny auditory hallucinations, visual hallucinations, delusions, homicidal ideation or racing thoughts Treatments prior to arrival: none If self harm: admits thoughts of self harm and has plan Review of Systems Const: Denies: fever(s), chills, body aches, change in appetite, fatigue or malaise ENMT: Denies: throat pain, ear or mastoid pain, nasal discharge or nasal congestion Card: Denies: chest pain, edema, dyspnea on exertion or orthopnea Resp: Denies: dyspnea, productive cough or non-productive cough GI: Denies: abdominal pain, nausea, vomiting, hematemesis, coffee ground emesis, diarrhea, constipation, bloating, hematochezia or melena : Denies: flank pain, dysuria, urinary frequency or urinary urgency Skin/Breast: Denies: rash or pruritus Psych: Reports: depression and suicidal ideation; Denies: visual hallucinations, auditory hallucinations or homicidal ideation [facility] ED PFSH: Medical History Alcohol use disorder Alcoholism Chronic back pain Depression Gastritis Hyperglycemia -A1c-5.0 Tobacco dependency -nicotine replacement therapy -smoking cessation encouraged Surgical History History of cholecystectomy Family History Other Cancer Social History Smoking and tobacco status: current every day smoker Alcohol intake: current Alcohol intake frequency: 3 or more drinks per day Alcohol type: hard liquor Physical Exam Const: COMMON NORMALS: no acute distress GENERAL APPEARANCE: cooperative and comfortable ORIENTATION/CONSCIOUSNESS: Yes awake, Yes oriented to person, Yes oriented to place and Yes oriented to time HENMT: COMMON NORMALS: normocephalic, atraumatic, hearing grossly normal bilaterally, external ears normal, EAC's normal, TM's normal bilaterally, Normal nasal mucous membranes and turbinates present, moist oral mucous membranes and oropharynx normal HEAD & SCALP: normocephalic and atraumatic NOSE: Normal nasal mucous membranes and turbinates present EXTERNAL EAR: Yes external ears normal EXTERNAL AUDITORY CANAL: EAC's normal TYMPANIC MEMBRANE: TM's normal bilaterally Eye: COMMON NORMALS: Equal, round and reactive pupils present, EOMs intact bilaterally, conjunctivae normal and no scleral icterus CONJUNCTIVA: Yes conjunctivae normal PUPIL: Yes Equal, round and reactive pupils present Neck/C-Spine: COMMON NORMALS: full ROM, no lymphadenopathy, supple and no JVD Lymph: LYMPHATIC: no lymphadenopathy noted and no lymphedema noted Resp: COMMON NORMALS: normal respiratory effort, No retractions, No use of accessory muscles and clear to auscultation bilaterally AUSCULTATION: clear to auscultation bilaterally Cardio: COMMON NORMALS: no JVD, regular rate, regular rhythm and No murmurs present (Cardio) RATE: regular rate RHYTHM: regular rhythm GI: COMMON NORMALS: Soft to palpation and No hepatosplenomegaly present AUSCULTATION: Yes normoactive bowel sounds PALPATION: Yes Soft to palpation, No Tenderness to palpation present (GI), No Guarding due to palpation present (GI) and Yes No hepatosplenomegaly present Extremity: COMMON NORMALS: normal to inspection, capillary refill normal, no clubbing, cyanosis or edema, no calf tenderness and no pedal edema Neuro: SENSORIUM/ORIENTATION: Yes oriented to person, Yes oriented to place and Yes oriented to time Psych: THOUGHT CONTENT: No delusions Skin: COMMON NORMALS: no rashes or lesions noted GENERAL SKIN EXAM: no rashes or lesions noted [facility] - Psych Lab Data: Labs: Lab Results 06/23/20 06/23/20 06/23/20 Range/Units 08:09 08:09 08:35 WBC 5.9 (4.0-10.0) 10^3/ uL RBC 4.92 (4.1-5.3) 10^6/u L Hgb 16.7 H (11.7-16.6) g/dL Hct 49.3 (42.0-52.0) % MCV 100.2 H (80-94) fL MCH 33.9 (28.0-34.0) pg MCHC 33.9 (30.0-36.0) g/dL RDW 12.8 (12.1-15.1) % Plt Count 136 (130-400) 10^3/c mm MPV 11.3 H (7.4-10.4) fL Neut % (Auto) 52.1 % Lymph % (Auto) 35.2 % [place] % (Auto) 9.6 % Eos % (Auto) 1.4 % Baso % (Auto) 1.4 % Neut # (Auto) 3.08 (1.8-7.7) 10^3/u L Lymph # (Auto) 2.1 (0.8-4.8) 10^3/u L [place] # (Auto) 0.6 (0.2-0.9) 10^3/u L Eos # (Auto) 0.1 (0.0-0.8) 10^3/u L Baso # (Auto) 0.1 (0.0-0.1) 10^3/u L Nucleated RBC % (a uto) 0 % Nucleated RBCs # 0.0 /100WBC Sodium (136-145) mmol/L Potassium (3.5-5.1) mmol/L Chloride (98-107) mmol/L Carbon Dioxide (22-29) mmol/L Anion Gap (5-19) BUN (8-23) mg/dL Creatinine (0.7-1.2) mg/dL GFR Calculation (90-130) mL/min Glucose (65-115) mg/dL Calculated Osmolal ity (285-295) mOsm/k g Calcium (8.5-10.5) mg/dL Total Bilirubin (0.15-1.2) mg/dL AST (0-40) U/L ALT (0-41) U/L Alkaline Phosphata se (40-130) IU/L Total Protein (6.6-8.7) g/dL Albumin (3.5-5.2) g/dL Globulin (1.3-4.6) g/dL Urine Color Yellow (Yellow) Urine Appearance Clear (CLEAR) Urine pH 5 (5-7) Ur Specific Gravit y 1.020 (1.005-1.030) Urine Protein 2+ H (Negative) Urine Glucose (UA) Norm (Normal) Urine Ketones Negative (Negative) Urine Blood 2+ H (Negative) Urine Nitrate Negative (Negative) Urine Bilirubin Neg (Negative) Urine Urobilinogen Norm (Negative) mg/dL Ur Leukocyte Cecy ase Negative (Negative) Urine RBC Rare (0-2) /hpf Urine WBC Rare (0-5) /hpf Ur Squamous Epith Cells None (0-5) /hpf Amorphous Sediment Not Reportable Urine Bacteria Trace (NONE) /hpf Hyaline Casts 0-4 H /lpf Coarse Granular Ca sts 0-4 H /lpf Urine Mucus 2+ /hpf Salicylates (3-10) mg/dL Urine Opiates Scre en Negative (Negative) ng/mL Acetaminophen (10-30) ug/mL Ur Barbiturates Sc reen Negative (Negative) ng/mL Ur Phencyclidine S crn Negative (Negative) ng/mL Ur Amphetamines Sc reen Negative (Negative) ng/mL U Benzodiazepines Scrn Negative (Negative) ng/mL Urine Cocaine Scre en Negative (Negative) ng/mL U Marijuana (THC) Screen Negative (Negative) ng/mL Ethyl Alcohol (0-10) mg/dL 06/23/20 Range/Units 08:35 WBC (4.0-10.0) 10^3/ uL RBC (4.1-5.3) 10^6/u L Hgb (11.7-16.6) g/dL Hct (42.0-52.0) % MCV (80-94) fL MCH (28.0-34.0) pg MCHC (30.0-36.0) g/dL RDW (12.1-15.1) % Plt Count (130-400) 10^3/c mm MPV (7.4-10.4) fL Neut % (Auto) % Lymph % (Auto) % [place] % (Auto) % Eos % (Auto) % Baso % (Auto) % Neut # (Auto) (1.8-7.7) 10^3/u L Lymph # (Auto) (0.8-4.8) 10^3/u L [place] # (Auto) (0.2-0.9) 10^3/u L Eos # (Auto) (0.0-0.8) 10^3/u L Baso # (Auto) (0.0-0.1) 10^3/u L Nucleated RBC % (a uto) % Nucleated RBCs # /100WBC Sodium 142 (136-145) mmol/L Potassium 4.4 (3.5-5.1) mmol/L Chloride 99 (98-107) mmol/L Carbon Dioxide 29 (22-29) mmol/L Anion Gap 18.4 (5-19) BUN 12 (8-23) mg/dL Creatinine 0.8 (0.7-1.2) mg/dL GFR Calculation 98.6 (90-130) mL/min Glucose 87 (65-115) mg/dL Calculated Osmolal ity 293 (285-295) mOsm/k g Calcium 9.3 (8.5-10.5) mg/dL Total Bilirubin 0.5 (0.15-1.2) mg/dL AST 126 H (0-40) U/L ALT 102 H (0-41) U/L Alkaline Phosphata se 72 (40-130) IU/L Total Protein 6.9 (6.6-8.7) g/dL Albumin 4.5 (3.5-5.2) g/dL Globulin 2.4 (1.3-4.6) g/dL Urine Color (Yellow) Urine Appearance (CLEAR) Urine pH (5-7) Ur Specific Gravit y (1.005-1.030) Urine Protein (Negative) Urine Glucose (UA) (Normal) Urine Ketones (Negative) Urine Blood (Negative) Urine Nitrate (Negative) Urine Bilirubin (Negative) Urine Urobilinogen (Negative) mg/dL Ur Leukocyte Cecy ase (Negative) Urine RBC (0-2) /hpf Urine WBC (0-5) /hpf Ur Squamous Epith Cells (0-5) /hpf Amorphous Sediment Urine Bacteria (NONE) /hpf Hyaline Casts /lpf Coarse Granular Ca sts /lpf Urine Mucus /hpf Salicylates < 0.3 L (3-10) mg/dL Urine Opiates Scre en (Negative) ng/mL Acetaminophen < 5.0 L (10-30) ug/mL Ur Barbiturates Sc reen (Negative) ng/mL Ur Phencyclidine S crn (Negative) ng/mL Ur Amphetamines Sc reen (Negative) ng/mL U Benzodiazepines Scrn (Negative) ng/mL Urine Cocaine Scre en (Negative) ng/mL U Marijuana (THC) Screen (Negative) ng/mL Ethyl Alcohol 354 H* (0-10) mg/dL Discharge Plan Discharge Patient Disposition: Admitted As Inpatient Admit Provider: Jerel Ferrari Clinical Impression: Suicidal ideation, Alcohol intoxication Condition: Stable Coding Level of Care Code ED Animal Cruelty Investigator for Steve Fwd Exam Comprehensive
[2020-06-23 08:46] LABS: Basophils # 0.1 10^3/uL (0.0-0.1); Basophils % 1.4 %; Eosinophils # 0.1 10^3/uL (0.0-0.8); Eosinophils % 1.4 %; Hematocrit 49.3 % (42.0-52.0); Hemoglobin 16.7 g/dL (11.7-16.6); Lymphocytes # 2.1 10^3/uL (0.8-4.8); Lymphocytes % 35.2 %; Mean Corpuscular HGB Conc 33.9 g/dL (30.0-36.0); Mean Corpuscular Hemoglobin 33.9 pg (28.0-34.0); Mean Corpuscular Volume 100.2 fL (80-94); Mean Platelet Volume 11.3 fL (7.4-10.4); Monocytes # 0.6 10^3/uL (0.2-0.9); Monocytes % 9.6 %; Neutrophils # 3.08 10^3/uL (1.8-7.7); Neutrophils % 52.1 %; Nucleated Red Blood Cells % 0 %; Platelet Count 136 10^3/cmm (130-400); Red Blood Count 4.92 10^6/uL (4.1-5.3); Red Cell Distribution Width 12.8 % (12.1-15.1); White Blood Count 5.9 10^3/uL (4.0-10.0)
[2020-06-23 09:00] LABS: Amphetamines Screen Urine Negative (Negative); Barbiturates Screen Urine Negative (Negative); Benzodiazepines Screen Urine Negative (Negative); Cocaine Screen Urine Negative (Negative); Opiate Screen Urine Negative (Negative); PCP Screen Urine Negative (Negative); THC Screen Urine Negative (Negative)
[2020-06-23 09:18] LABS: Urine Appearance Clear (CLEAR); Urine Color Yellow (Yellow); pH Urine 5 (5-7)
[2020-06-23 09:19] LABS: Add Urine Culture? No; Add Urine Microscopic? YES; Bacteria Urine TRACE /hpf; Bilirubin Urine Neg (Negative); Blood Urine 2+ (Negative); Coarse Granular Casts Urine 0-4 /lpf; Glucose Urine UA Norm (Normal); Hyaline Casts Urine 0-4 /lpf; Ketones Urine Negative (Negative); Leukocyte Esterase Urine Negative (Negative); Mucus Urine 2+ /hpf; Nitrate Urine Negative (Negative); Protein Urine 2+ (Negative); RBC Urine RARE /hpf (0-2); Urobilinogen Urine Norm (Negative); WBC Urine RARE /hpf (0-5)
[2020-06-23 09:37] LABS: Alanine Aminotransferase 102 U/L (0-41); Albumin Level 4.5 g/dL (3.5-5.2); Alkaline Phosphatase 72 IU/L (40-130); Anion Gap 18.4 (5-19); Aspartate Amino Transferase 126 U/L (0-40); Blood Urea Nitrogen 12 mg/dL (8-23); Calcium 9.3 mg/dL (8.5-10.5); Carbon Dioxide 29 mmol/L (22-29); Chloride 99 mmol/L (98-107); Globulin 2.4 g/dL (1.3-4.6); Glomerular Filtration Rate 98.6 mL/min (90-130); Glucose 87 mg/dL (65-115); Osmolality Calculated 293 mOsm/kg (285-295); Potassium 4.4 mmol/L (3.5-5.1); Sodium 142 mmol/L (136-145); Total Bilirubin 0.5 mg/dL (0.15-1.2); Total Protein 6.9 g/dL (6.6-8.7)
[2020-06-23 09:41] LABS: Acetaminophen < 5.0 ug/mL (10-30); Salicylate < 0.3 mg/dL (3-10)
[2020-06-23 09:43] LABS: Alcohol Level 354 mg/dL (0-10)
[2020-06-23 14:40] LABS: Alcohol Level 235 mg/dL (0-10)
[2020-06-23 16:06] VITALS: BP 120/90; PULSE 99; RESP 20; TEMP 36.2; O2SAT 95
[2020-06-23 20:42] VITALS: BP 161/65; PULSE 77; RESP 16; TEMP 37.1; O2SAT 93
--- NOTE | 2020-06-23 20:53 | PC.NURSE ---
CIWA 11 Mildly diaphoretic, mild light/sound disturbances, mild headache, tremor visualized by nurse with arms extended and eyes closed. Pt states he is anxious and experiences PTSD. Reports needing a cigarette and a pint, and I would be ok . Pt is mildly nauseated and reports difficulty sleeping, V/S are 98.8 temperature, 77 Pulse rate, 16 Respiratory rate, 93% oxygen on RA, and B/P of 161/65. Pt is walking between room and dayroom, unable to rest. Will continue to monitor pt condition
[2020-06-23] MEDS: trazodone 50 mg Tablet PO (20:54)
[2020-06-23] MEDS: LORazepam 2 mg Tablet PO (20:54)
[2020-06-23] MEDS: hyDROXYzine 25 mg Capsule 50 MG PO (20:54)
--- NOTE | 2020-06-23 22:07 | PC.NURSE ---
FOLLOWUP CIWA MEDS, PT RESTING, APPEARS LESS SYMPTOMATIC OF ALCOHOL WITHDRAWL, WILL CONTINUE TO MONITOR.
--- NOTE | 2020-06-23 22:12 | PC.NURSE ---
DONNA 4 PT RESTING AT THIS TIME
[2020-06-24 06:00] VITALS: BP 141/88; PULSE 75; RESP 17; TEMP 36.9; O2SAT 98
--- NOTE | 2020-06-24 07:08 | P.HP_ITS ---
Providers/Chief Complaint Admitting Physician: Jeerl Ferrari MD Primary Care Provider: Simin Johnson MD Chief Complaint: SI, LAC TO L ELBOW HPI NPU History of Present Illness Rolando Campbell is a 60 year old male who presented to the emergency department with the following report: Chief Complaint: Psychiatric Symptoms Stated Complaint: SI, LAC TO L ELBOW Time Seen by Provider: 06/23/20 07:19 History of Present Illness: HPI Narrative: 60-year-old male presents to the emergency room via EMS. He made statements to EMS that he wanted to harm hims elf he make allusions to it and then the same conversation denies he would ever harm himself. Several times makes claiming he was take a pill and just or go to sleep permanently. He states he feels hopeless. Patient smells strongly of alcohol. He reports having multiple falls recently and he is laceration extensor surface of his left elbow. He refuses to allow us to clean it or to suture it states he has had thousands of sutures in the past and he does not want anymore. complaint: suicidal ideation and feels depressed Onset (ago): month(s) Duration: constant History of same: Yes Relieving factors: none Exacerbating factors: none Associated psychiatric symptoms: none Associated symptoms: Reports depression and suicidal ideation; Deny auditory hallucinations, visual hallucinations, delusions, homicidal ideation or racing thoughts Treatments prior to arrival: none If self harm: admits thoughts of self harm and has plan. He was admitted to the neuropsychiatric unit for definitive treatment of those issues. Rolando presents today reporting that he is unsure of why he is even here. He reports that he has had psychiatric treatment in the past but normally he has checked himself in. He is unsure why he is on a 96-hour hold. He reports that he has been in the hospital maybe 4 times. He reports that he goes to [facility] for treatment. He endorses that he fell at the place where he lives and they brought him to the hospital to evaluate him and he knows he is on this 96-hour hold. He reports he smokes about three quarters of a pack of cigarettes a day, reports that he drinks most days, depending on the day to self medicate. He denies marijuana, cocaine or any other illicit drug use. He reports he has been to 1 rehab and has had 1 DUI in [place] and one in [facility]. He reports he wears braces and he does not always wear them because of chafing and discomfort and things of that nature and he thinks that may have some to do with it. When I brought up him drinking he was very resistant to the conversation and seemed to believe that they were unaware of that behavior. It is not something he is allowed to do there and he knows that but he does not believe they know that he is doing that. The problem I reported to him is that I imagine most people who have a blood alcohol higher than 354 which is what it was when he got here so it had to be higher when he was there are notably under the influence. He denied knowing that they were not allowing him to return and he had no options of where he would go if in fact they are not letting him back. We talked about [facility] but they also have a no drinking policy. He denied any need to make any medication changes denied any issues needing addressed and reports he feels he is doing fine on the medications he is taking. An excerpt of his 11/12/2019 [facility] inpatient eval is included below for context. Psychiatric history: As above. Substance abuse history: As above. Notably his self-medicating as he describes his drinking appears to be a much larger problem that he is willing to acknowledge. Developmental history: There were no problems with the , or delivery, learned to walk and talk and met developmental milestones on time, and denies need for speech therapy, learning support, emotional support or special education classes. Psychosocial history: He reports that his parents may have been together when he was born and that there is a younger brother that is a product of that same union. He denies any knowledge that either of his parents have any other children. He reports that his parents split up and he spent most of his life growing up with his maternal grandparents and his mother and did not see his father much after. He reports that his childhood was okay and denied any emotional, physical or sexual abuse. He also graduating from high school and getting a bachelors of arts in theater and a minor history. He endorses being a heterosexual and being almost 25 years. He has been 1 time and once, he has 2 children that are adults and he has no idea where they are or how to contact them, he was in the for what appears to be at least 6 years but he is very elusive about his time because of negative feelings about being a stanched [place] Lutheran and believing when it says Duarte shallt not, that that does not mean you can make exceptions for reasons and so he struggles with his time. He endorses being a staunch Presybeterian/[place] Lutheran but also talks about being wicken, orozco and spiritual. He reports that his longest employment was at [employer] for about 20 years. He is currently homeless but had been living at [facility]. Legal history: He denies any significant history of legal peril. Medical history: He endorses significant issues including his HDLs, sciatica and other things 1 can find in the emergency room document. Per his [facility] 11/12/2019 inpatient psychiatric eval: History of Present Illness Rolando Campbell is a 59 year old male who presented to the emergency room reporting that he had relapsed on alcohol and was afraid that this will be the beginning of a very bad run. He endorsed depression and reporting he had been off of his medication for months at least maybe a year. He had been sober for about a year prior to this episode. He reports that there have been some stressful situations, he had been taken advantage of and that led to the relapse. He started having thoughts to harm himself and came to the emergency room and was admitted to the neuropsychiatric unit for definitive treatment of those issues. He reports that he has a long history of psychiatric treatment endorsing multiple inpatient stays at [facility]. He reports that he started smoking cigarettes drinking alcohol and smoking weed in his teens and reports that he has had a long run of addiction and other chemicals as well including opiates and methamphetamines but reports is been a long time since those things had occurred. He had even been up and down throughout his life and is drinking from the standpoint of sobriety. He reports that most recently in the past years he has had more binge drinking behavior then reverting to daily drinking. He reports that in February he started having housing issues and now finds himself completely homeless he reports the COVID-19 has made it harder for him to get on his feet and frustration he ended up drinking but also having depression. He denies having any actual suicide attempts and reports his goal for the hospitalization will be to get back on medication that helped him in the past though he does not remember names. An excerpt from his last [facility] inpatient eval is included below. Psychiatric history: As above. He has had at least 8 inpatient hospitalizations here at [facility]. He denies having a long history of medication trials. Substance abuse history: Endorses smoking about half to 3/4 pack of cigarettes a day that he has not been drinking and really does not smoke marijuana. He denies any illicit drug use for some time. Reports that he has been to rehab 1 time and has had DUIs with the last one was about a decade ago. Family history: He denies any mental health or addiction issues in his family and denies any suicide attempts or completions that he is aware of. Developmental history: He is unaware of any issues with his mom's or delivery of him. He learned to walk and talk and met his developmental milestones on time. He denies having speech therapy, learning support, emotional support or special education classes. Psychosocial history: He reports his mother and father were together when he was born and that he has a younger brother. He denies any half siblings through either parent. He reports that his childhood and the school and there was no emotional physical or sexual abuse. He reports he graduated from high school and has a bachelor's of arts and theater with minor history. He is a heterosexual and his longest relationship was almost 25 years. He has been once and once he has a 32-year-old daughter and a 28-year-old son. He was in the [employer] from 78- 82. He endorses being [place] Lutheran. He reports that his longest job he ever worked was 20 years with [employer]. He endorses being homeless. Legal history: Endorses being in prison maybe home many times with the longest time served being 3 months. Medical history: He denies any significant medical issues. Per [facility] OP eval: DATE OF VISIT: 02/04/2014 DATE OF DICTATION: 02/05/2014 START TIME: 10:25 END TIME: 11:05 CHIEF COMPLAINT: Resuming care. HISTORY OF PRESENT ILLNESS: The patient has been receiving psychiatric care at [facility]. He has been placed on both Prozac and trazodone, which he found helpful. He described himself as an addict . He has had a significant history of alcohol abuse. He described his alcohol use with sobriety for 136 days. He has used also methamphetamine in the past. The patient reported feeling sad and depressed and he was placed on the antidepressants, which he found them helpful. He would like to resume care. He is currently staying at the [facility]. CURRENT MEDICATIONS: Prozac 20 milligrams daily Trazodone 50 milligrams at bedtime FAMILY PSYCHIATRIC HISTORY: He denied a family history of psychiatric illness. SOCIAL HISTORY: He lives at the [facility]. He is . He has been in [place]. He is a . He graduated college. He has two children. He was living with his mother, before he became homeless. His major in school was theater. PAST MEDICAL/SURGICAL HISTORY: Cholecystectomy. He has also mentioned a previous diagnosis of some sort of a kidney cancer. A gastric ulcer was also reported. PAST PSYCHIATRIC HISTORY: Previously diagnosed with depression and posttraumatic stress disorder. SUBSTANCE ABUSE HISTORY: Methamphetamine and alcohol as described above. PHYSICAL EXAMINATION: VITAL SIGNS: BP: 113/59. PULSE: 98. WT: 172 pounds. GENERAL: He is not in any acute distress. He has a long mustache. He is alert and oriented to time, place, and person. EXTREMITIES: There was no extremity edema or deformity. MENTAL STATUS EXAM: The patient is fairly well-groomed, cooperative, good eye contact and spontaneous speech. He has denied any thoughts of suicide or homicide. He has denied any auditory or visual hallucinations. Affect is full. Mood is described as better with my medication. Fair attention and concentration. ASSESSMENT: AXIS I: Posttraumatic stress disorder. Major depressive disorder. Polysubstance dependence, in partial remission. Meds NPU Home Medications Medication Instructions Recorded Confirmed Last Taken Type fluoxetine 20 mg PO DAILY 30 Days #30 cap 11/13/19 06/23/20 01/15/20 Rx propranolol 20 mg PO TID 30 Days #90 tab 11/13/19 06/23/20 01/15/20 Rx multivitamin [Multiple Vitamins] 1 tab PO DAILY 01/15/20 06/23/20 01/15/20 Histo ry Allergies Allergy/AdvReac Type Severity Reaction Status Date / Time No Known Allergies Allergy Verified 06/23/20 07:32 PFSH NPU PFSH: Medical History Alcohol use disorder Alcoholism Chronic back pain Depression Gastritis Hyperglycemia -A1c-5.0 Tobacco dependency -nicotine replacement therapy -smoking cessation encouraged Surgical History History of cholecystectomy Family History Other Cancer Social History Smoking and tobacco status: current every day smoker Alcohol intake: current Alcohol intake frequency: 3 or more drinks per day Alcohol type: hard liquor Mental Status Exam MSE Comments: This is a well-nourished well-developed white male looking quite disheveled with facial hair and his air in his head being out of sorts his nails being long with dirt under the thumb in hospital scrubs with poor grooming and adequate eye contact. No abnormal movements except for mild psychomotor retardation. Mostly cooperative with exam in no acute distress. Speech was normal rate and volume. Mood described as not too bad, affect euthymic. Thought process organized. Thought content: Patient denied suicidal or homicidal ideations, there were no delusions reported or noted, he denied any auditory or visual delays. Attention and concentration appeared intact and memory was somewhat unreliable but none were tested. He is alert and oriented person and place. Insight and judgment are limited and impulse control is impaired. Vitals/I&O/Wt Last Vital Signs Temp 98.4 F 06/24/20 06:00 Pulse 75 06/24/20 06:00 Resp 17 06/24/20 06:00 BP 141/88 06/24/20 06:00 Pulse Ox 98 06/24/20 06:00 Data NPU : 06/23/20 08:35 06/23/20 08:35 A&P Assessment and plan (1) Major depressive disorder: Status: Acute (2) PTSD (post-traumatic stress disorder): Status: Acute (3) Suicidal ideation: Status: Acute (4) Alcohol intoxication: Status: Acute (5) Alcohol use: Status: Acute Additional A&P Information This is a 60-year-old white male with a long history of depression PTSD and alcohol use who presented quite intoxicated to the emergency department coming from a [facility] now sober and denying having any issues and being very resistant to identifying the role that his alcohol addiction is playing in his car difficulties. 1. Continue current medication. Restart his previous psychiatric medication as long as he concurs. 2. Continue every 15 minute checks for safety. 3. Encourage individual, group and milieu therapies. 4. Encourage sober living treatment after discharge at the highest level of care to which he is willing to commit. Involuntary Hold Information 96 Hour Hold: 96 Hour Involuntary Admission: Yes 96 Hour Hold Ending Date: 06/27/20 96 Hour Hold Ending Time: 08:15 Attestations NPU Medical Necessity Statement*: Inpatient hospitalization is medically necessary and the clinically appropriate intervention at this time. We will monitor medications and make changes as indicated. Patient will be in the hospital for over two midnights. Likely length of stay 3 to 5 days. Coding Level of Care Code Acute Coat Operator Insulator for Steve Cox Diagnoses Major depressive disorder F32.9 PTSD (post-traumatic stress disorder) F43.10 Suicidal ideation R45.851 Alcohol intoxication F10.929 Alcohol use Z72.89
[2020-06-24] MEDS: multivitamin therapeutic Tablet 1 TAB PO (08:45)
[2020-06-24] MEDS: folic acid 1 mg Tablet PO (08:45)
[2020-06-24] MEDS: thiamine 100 mg Tablet PO (08:45)
[2020-06-24 13:46] VITALS: BP 139/74; PULSE 83; RESP 18; TEMP 36.8; O2SAT 90
[2020-06-24 20:14] VITALS: BP 162/82; PULSE 64; RESP 16; TEMP 36.9; O2SAT 95
[2020-06-24] MEDS: trazodone 50 mg Tablet PO (20:48)
[2020-06-24] MEDS: LORazepam 2 mg Tablet PO (20:48)
[2020-06-24] MEDS: hyDROXYzine 25 mg Capsule 50 MG PO (20:49)
--- NOTE | 2020-06-25 01:55 | PC.NURSE ---
MED TIMING CHANGE PT REQUESTED HEART/BP MEDS TO BE GIVEN AT 0500 AND 1700. PHYSICIAN OKAYED THE CHANGE. ENTERED THIS CHANGE IN THE MAR TO UPDATE MED TIMING
--- NOTE | 2020-06-25 01:57 | PC.NURSE ---
PM ASSESSMENT PT IN THE DAYROOM, DENIES AH/VH, DENIES SI/HI, STATES HE HAS CHRONIC PAIN AT A 4. MED NURSE NOTIFIED.PT IS CALM AND COOPERATIVE WITH STAFF.
[2020-06-25 04:34] VITALS: BP 124/70; PULSE 83; RESP 20; TEMP 36.6; O2SAT 92
--- NOTE | 2020-06-25 05:54 | PC.NURSE ---
dressing change 06/25/20 dressing on elbow changed, it was soiled. pt tolerated it well. 4x6 coverderm placed over cleaned elbow
[2020-06-25] MEDS: folic acid 1 mg Tablet PO (08:50)
[2020-06-25] MEDS: multivitamin therapeutic Tablet 1 TAB PO (08:50)
[2020-06-25] MEDS: thiamine 100 mg Tablet PO (08:50)
[2020-06-25 13:58] VITALS: BP 110/74; PULSE 64; RESP 18; TEMP 37.2; O2SAT 93
--- NOTE | 2020-06-25 14:16 | P.DS_ITS ---
Diagnoses at Discharge Discharge Diagnosis (1) Major depressive disorder: Status: Acute (2) PTSD (post-traumatic stress disorder): Status: Acute (3) Suicidal ideation: Status: Resolved (4) Alcohol intoxication: Status: Acute (5) Alcohol use: Status: Acute Reason for Visit Reason for Visit: SI, LAC TO L ELBOW Brief History: History of Present Illness Rolando Campbell is a 60 year old male who presented to the emergency department with the following report: Chief Complaint: Psychiatric Symptoms Stated Complaint: SI, LAC TO L ELBOW Time Seen by Provider: 06/23/20 07:19 History of Present Illness: HPI Narrative: 60-year-old male presents to the emergency room via EMS. He made statements to EMS that he wanted to harm himself he make allusions to it and then the same conversation denies he would ever harm himself. Several times makes claiming he was take a pill and just or go to sleep permanently. He states he feels hopeless. Patient smells strongly of alcohol. He reports having multiple falls recently and he is laceration extensor surface of his left elbow. He refuses to allow us to clean it or to suture it states he has had thousands of sutures in the past and he does not want anymore. MD complaint: suicidal ideation and feels depressed Onset (ago): month(s) Duration: constant History of same: Yes Relieving factors: none Exacerbating factors: none Associated psychiatric symptoms: none Associated symptoms: Reports depression and suicidal ideation; Deny auditory hallucinations, visual hallucinations, delusions, homicidal ideation or racing thoughts Treatments prior to arrival: none If self harm: admits thoughts of self harm and has plan. He was admitted to the neuropsychiatric unit for definitive treatment of those issues. Rolando presents today reporting that he is unsure of why he is even here. He reports that he has had psychiatric treatment in the past but normally he has checked himself in. He is unsure why he is on a 96-hour hold. He reports that he has been in the hospital maybe 4 times. He reports that he goes to [facility] for treatment. He endorses that he fell at the place where he lives and they brought him to the hospital to evaluate him and he knows he is on this 96-hour hold. He reports he smokes about three quarters of a pack of cigarettes a day, reports that he drinks most days, depending on the day to self medicate. He denies marijuana, cocaine or any other illicit drug use. He reports he has been to 1 rehab and has had 1 DUI in [place] and one in [facility]. He reports he wears braces and he does not always wear them because of chafing and discomfort and things of that nature and he thinks that may have some to do with it. When I brought up him drinking he was very resistant to the conversation and seemed to believe that they were unaware of that behavior. It is not something he is allowed to do there and he knows that but he does not believe they know that he is doing that. The problem I reported to him is that I imagine most people who have a blood alcohol higher than 354 which is what it was when he got here so it had to be higher when he was there are notably under the influence. He denied knowing that they were not allowing him to return and he had no options of where he would go if in fact they are not letting him back. We talked about [facility] out reach but they also have a no drinking policy. He denied any need to make any medication changes denied any issues needing addressed and reports he feels he is doing fine on the medications he is taking. An excerpt of his [place] [facility] [place] is included below for context. Psychiatric history: As above. Substance abuse history: As above. Notably his self-medicating as he describes his drinking appears to be a much larger problem that he is willing to acknowledge. Developmental history: There were no problems with the , or delivery, learned to walk and talk and met developmental milestones on time, and denies need for speech therapy, learning support, emotional support or special education classes. Psychosocial history: He reports that his parents may have been together when he was born and that there is a younger brother that is a product of that same union. He denies any knowledge that either of his parents have any other children. He reports that his parents split up and he spent most of his life growing up with his maternal grandparents and his mother and did not see his father much after. He reports that his childhood was okay and denied any emotional, physical or sexual abuse. He also graduating from high school and getting a bachelors of arts in theater and a minor history. He endorses being a heterosexual and being almost 25 years. He has been 1 time and once, he has 2 children that are adults and he has no idea where they are or how to contact them, he was in the for what appears to be at least 6 years but he is very elusive about his time because of negative feelings about being a stanched Setswana Caodaism and believing when it says Duarte shallt not, that that does not mean you can make exceptions for reasons and so he struggles with his time. He endorses being a staunch Pentecostalism/Setswana Caodaism but also talks about being wicken, orozco and spiritual. He reports that his longest employment was at [employer] for about 20 years. He is currently homeless but had been living at [facility]. Legal history: He denies any significant history of legal peril. Medical history: He endorses significant issues including his HDLs, sciatica and other things 1 can find in the emergency room document. Per [place] [facility] [place] psychiatric eval: History of Present Illness Rolando Campbell is a 59 year old male who presented to the emergency room reporting that he had relapsed on alcohol and was afraid that this will be the beginning of a very bad run. He endorsed depression and reporting he had been off of his medication for months at least maybe a year. He had been sober for about a year prior to this episode. He reports that there have been some stressful situations, he had been taken advantage of and that led to the relapse. He started having thoughts to harm himself and came to the emergency room and was admitted to the neuropsychiatric unit for definitive treatment of those issues. He reports that he has a long history of psychiatric treatment endorsing multiple inpatient stays at [facility]. He reports that he started smoking cigarettes drinking alcohol and smoking weed in his teens and reports that he has had a long run of addiction and other chemicals as well including opiates and methamphetamines but reports is been a long time since those things had occurred. He had even been up and down throughout his life and is drinking from the standpoint of sobriety. He reports that most recently in the past years he has had more binge drinking behavior then reverting to daily drinking. He reports that in February he started having housing issues and now finds himself completely homeless he reports the COVID-19 has made it harder for him to get on his feet and frustration he ended up drinking but also having depression. He denies having any actual suicide attempts and reports his goal for the hospitalization will be to get back on medication that helped him in the past though he does not remember names. An excerpt from his last [facility] [place] is included below. Psychiatric history: As above. He has had at least 8 inpatient hospitalizations here at [facility]. He denies having a long history of medication trials. Substance abuse history: Endorses smoking about half to 3/4 pack of cigarettes a day that he has not been drinking and really does not smoke marijuana. He denies any illicit drug use for some time. Reports that he has been to rehab 1 time and has had DUIs with the last one was about a decade ago. Family history: He denies any mental health or addiction issues in his family and denies any suicide attempts or completions that he is aware of. Developmental history: He is unaware of any issues with his mom's or delivery of him. He learned to walk and talk and met his developmental milestones on time. He denies having speech therapy, learning support, emotional support or special education classes. Psychosocial history: He reports his mother and father were together when he was born and that he has a younger brother. He denies any half siblings through either parent. He reports that his childhood and the school and there was no emotional physical or sexual abuse. He reports he graduated from high school and has a bachelor's of arts and theater with minor history. He is a heterosexual and his longest relationship was almost 25 years. He has been once and once he has a 32-year-old daughter and a 28-year-old son. He was in the [employer] from 78- 82. He endorses being Setswana Caodaism. He reports that his longest job he ever worked was 20 years with [employer]. He endorses being homeless. Legal history: Endorses being in longterm maybe home many times with the longest time served being 3 months. Medical history: He denies any significant medical issues. Per [facility] OP eval: DATE OF VISIT: 02/04/2014 DATE OF DICTATION: 02/05/2014 START TIME: 10:25 END TIME: 11:05 CHIEF COMPLAINT: Resuming care. HISTORY OF PRESENT ILLNESS: The patient has been receiving psychiatric care at [facility]. He has been placed on both Prozac and trazodone, which he found helpful. He described himself as an addict . He has had a significant history of alcohol abuse. He described his alcohol use with sobriety for 136 days. He has used also methamphetamine in the past. The patient reported feeling sad and depressed and he was placed on the antidepressants, which he found them helpful. He would like to resume care. He is currently staying at the [facility]. CURRENT MEDICATIONS: Prozac 20 milligrams daily Trazodone 50 milligrams at bedtime FAMILY PSYCHIATRIC HISTORY: He denied a family history of psychiatric illness. SOCIAL HISTORY: He lives at the [facility]. He is . He has been in [facility]. He is a . He graduated college. He has two children. He was living with his mother, before he became homeless. His major in school was theater. PAST MEDICAL/SURGICAL HISTORY: Cholecystectomy. He has also mentioned a previous diagnosis of some sort of a kidney cancer. A gastric ulcer was also reported. PAST PSYCHIATRIC HISTORY: Previously diagnosed with depression and posttraumatic stress disorder. SUBSTANCE ABUSE HISTORY: Methamphetamine and alcohol as described above. PHYSICAL EXAMINATION: VITAL SIGNS: BP: 113/59. PULSE: 98. WT: 172 pounds. GENERAL: He is not in any acute distress. He has a long mustache. He is alert and oriented to time, place, and person. EXTREMITIES: There was no extremity edema or deformity. MENTAL STATUS EXAM: The patient is fairly well-groomed, cooperative, good eye contact and spontaneous speech. He has denied any thoughts of suicide or homicide. He has denied any auditory or visual hallucinations. Affect is full. Mood is described as better with my medication. Fair attention and concentration. ASSESSMENT: AXIS I: Posttraumatic stress disorder. Major depressive disorder. Polysubstance dependence, in partial remission. Hospital Course Hospital Course Rolando presented to the emergency department endorsing depression and suicidali ty with a BAL of 354, so he was admitted to the Neuropsychiatric unit for definitive treatment of those issues. He slowly acclimated to the individual, group and milieu therapies provided. His home medications were continued. He had to pronounce change after he sobered up. He was able to contract for safety prior to discharge. During the hospitalization, patient had routine laboratory studies which were within normal limits except for few outliers. Additionally there was a general medical evaluation which was also within normal limits and revealed no new acute processes. Discharge Summary: At the time of discharge, lethality was denied and psychosis was resolving. Mood and anxiety were well managed. Patient endorsed a plan to avoid all drugs of abuse and follow-up with the aftercare recommendations of the treatment team. Patient was evaluated and deemed to be absent credible lethality, and had achieved the maximum benefit from an inpatient hospitalization, so was discharged. Involuntary Hold Information 96 Hour Hold: 96 Hour Involuntary Admission: Yes 96 Hour Hold Ending Date: 06/27/20 96 Hour Hold Ending Time: 08:15 Mental Status Exam MSE Comments: This is a well-nourished well-developed white male looking quite disheveled with facial hair and his hair on his head being out of sorts his nails being long with dirt under the thumb in hospital scrubs with poor grooming and adequate eye contact. No abnormal movements except for mild psychomotor retardation. Mostly cooperative with exam in no acute distress. Speech was normal rate and volume. Mood described as OK, affect euthymic. Thought process organized. Thought content: Patient denied suicidal or homicidal ideations, there were no delusions reported or noted, he denied any auditory or visual hallucinations. Attention and concentration appeared intact and memory was more reliable but none were formally tested. He is alert and oriented person and place. Insight and judgment are limited and impulse control is impaired. Discharge Data Vitals: Last Vital Signs Temp 98.9 F 06/25/20 13:58 Pulse 64 06/25/20 13:58 Resp 18 06/25/20 13:58 BP 110/74 06/25/20 13:58 Pulse Ox 93 06/25/20 13:58 Discharge Plan Discharge Patient Disposition: Home Condition: Stable Prescriptions: New Vitamin B-1 (mononitrate) 100 mg Tablet 100 mg PO DAILY 30 Days Qty: 30 RF: 1 Continued Multiple Vitamins Tablet 1 tab PO DAILY 30 Days Qty: 30 RF: 1 propranolol 20 mg Tablet 20 mg PO TID 30 Days Qty: 90 RF: 1 fluoxetine 20 mg Capsule 20 mg PO DAILY 30 Days Qty: 30 RF: 1 Discharge Orders: Discharge Order (Routine); Ordered 06/25/20 Ordered By: Jerel Ferrari Discharge Diet: Regular Discharge Activity: Resume usual activity Patient Instructions: Alcohol Abuse, Depression, Thiamine (Vitamin B-1) (By mouth), Suicide Prevention for Adults (DC) Discharge Attestations NPU Time Spent in Discharge Care*: less than 30 min Specific Discharge Activities: Specific discharge activities: educating patient, discussing with case mgr/social workers/dc planners, documenting/other paperwork and evaluating patient/reviewing data Status at Discharge: Cognitive status at discharge: cognitively intact , Behavioral status at discharge: cooperative and independent in ADL's , Coding Level of Care Code Acute [employer] for [facility] Fwd Diagnoses Major depressive disorder F32.9 PTSD (post-traumatic stress disorder) F43.10 Suicidal ideation R45.851 Alcohol intoxication F10.929 Alcohol use Z72.89
[2020-06-25 14:23] VITALS: BP 110/74; PULSE 64; RESP 18; TEMP 37.2; O2SAT 93
== END 2020-06-25 15:00 | disposition home or self-care (01) | DRG 881 ==
LOC: ER 10:31 → NP 10:43
PROVIDERS: Admitting Provider Psychiatry & Neurology Psychiatry; Emergency Provider Family Medicine; PCP Family Medicine; Visit Provider Psychiatry & Neurology Psychiatry
DX: F32.9 Major depressive disorder, single episode, unspecified (principal); R45.851 Suicidal ideations; F17.210 Nicotine dependence, cigarettes, uncomplicated; F10.229 Alcohol dependence with intoxication, unspecified; Y90.8 Blood alcohol level of 240 mg/100 ml or more; Z59.0 Homelessness; F43.10 Post-traumatic stress disorder, unspecified; F19.21 Other psychoactive substance dependence, in remission; G89.29 Other chronic pain; M54.9 Dorsalgia, unspecified; K29.70 Gastritis, unspecified, without bleeding
CPT/HCPCS: 12345; 36415; 80053; 80306; 80307; 81001; 85025; 99284